=== PATIENT | male | born 1955 | race Caucasian/White ===

== ENCOUNTER 2022-02-03 11:43 | Inpatient (IN) | payer OTHER, SELFPAY ==
[2022-02-03] VITALS (38 sets, daily range): BP systolic 83–157; BP diastolic 49–109; PULSE 77–121; RESP 16–38; TEMP 32.9–36.9; O2SAT 99–100; BMI 16.7
--- NOTE | 2022-02-03 | ECHO_ITS ---
Patient Info Name: Bunny Kaur Age: 66 years : 1955 Gender: Male Ht: 72 in Wt: 123 lbs BSA: 1.66 m2 HR: 106 bpm BP: 116 / 69 mmHg Heart Rhythm: Sinus Rhythm Exam Date: 02/03/2022 3:49 PM Exam Location: [facility] Patient Status: Inpatient Admit Date: 02/03/2022 Staff Ordering Physician: Pritesh Sims MD Robot Operator: Spenser Neves RDCS, RT Attending Provider: Emily Fuentes DO Exam Type: CA echo dop color flow w con Study Info Indications I50.9 - Heart failure, unspecified Complete two-dimensional, color flow and Doppler transthoracic echocardiogram is performed with contrast to opacify the left ventricle and to improve the deliniation of the left ventricle endocardial borders. Summary 1. Left ventricular chamber dimension is normal. 2. Left ventricular systolic function is normal, estimated at 65-70%. 3. There is mildly increased left ventricular wall thickness. 4. The left ventricular diastolic function is grade I diastolic dysfunction. 5. The aortic root size at the sinus of Valsalva is moderately dilated. Left Ventricle Left ventricular chamber dimension is normal. Left ventricular systolic function is normal, estimated at 65-70%. There is mildly increased left ventricular wall thickness. The left ventricular diastolic function is grade I diastolic dysfunction. Right Ventricle Right ventricular chamber dimension is normal. Right ventricular systolic function is normal. Left Atria Left atrial chamber dimension is normal. Right Atria Right atrial chamber dimension is normal. Atrial Septum Intact interatrial septum visualized by color flow imaging. Aortic Valve The aortic valve is not well visualized. There is no aortic valve stenosis. There is trace aortic valve regurgitation. Pulmonic Valve The pulmonic valve is normal. There is no pulmonic valve stenosis. There is trace pulmonic regurgitation. Mitral Valve The mitral valve has normal leaflets. There is no mitral valve stenosis. There is trace mitral valve regurgitation. Tricuspid Valve The tricuspid valve leaflets are normal. There is no significant tricuspid valve stenosis. There is trace tricuspid valve regurgitation. Pericardium/Pleural The pericardium appears normal. There is no pericardial effusion. Inferior Vena Cava Normal inferior vena cava with >50% collapse upon inspiration consistent with normal right atrial pressure, 5 mmHg. Aorta The aortic root size at the sinus of Valsalva is moderately dilated. Left Ventricular Outflow Tract Name Value Normal LVOT 2D LVOT Diameter 2.05 cm LVOT Doppler LVOT Peak Gradient 3 mmHg LVOT Mean Gradient 2 mmHg LVOT VTI 13.36 cm LVOT VTI/AV VTI Ratio 0.78 LVOT Stroke Volume 43.89 ml LVOT CO 4.84 l/min LVOT CI 2.91 L/min/m2 Mitral Valve Name
--- NOTE | ~2022-02-03 | XR_ITS ---
EXAMINATION: XR chest 1V portable DATE: 02/12/2022 06:35 INDICATION: Pneumonia. Respiratory failure. TECHNIQUE: A single frontal view of the chest was obtained. COMPARISON: Chest single view 02/11/2022 FINDINGS: There are airspace opacities in right mid and lower lung zones and left lower lung zone. Ca lcified pulmonary nodules are consistent with old granulomatous disease. No pleural effusion or pneum othorax. The heart size is normal. The endotracheal tube tip is 2.6 cm above the naveen. The nasogast kirk tube tip is beyond the inferior margin of the radiograph, but at least to the stomach. IMPRESSION: 1. Airspace opacities in right mid and lower lung zones and left lower lung zones with worsening on t he right, consistent with atelectasis versus pneumonia. Reviewed, dictated and finalized at location A. SHER HOT STRIP IMPRESSION: 1. Airspace opacities in right mid and lower lung zones and left lower lung zon es with worsening on the right, consistent with atelectasis versus pneumonia.
--- NOTE | ~2022-02-03 | CT_ITS ---
Non-contrast Head CT History: Mental status change Technique: Axial non-contrast imaging of the brain was performed. Dose reduction technique was used on this scan by utilizing automated exposure control and iterative reconstruction technique. The dose -length product (DLP) was 681.00 mGy-cm. Findings: There is no evidence of intracranial hemorrhage, mass lesion, or acute infarct. Brain par enchyma appears normal. The ventricles and subarachnoid spaces are normal in size. The calvarium ap pears normal. The visualized paranasal sinuses and mastoid air cells are clear. Impression: No significant abnormality seen. Reviewed, dictated and finalized at location . WORKERS SUPERVISOR Impression: No significant abnormality seen.
--- NOTE | ~2022-02-03 | XR_ITS ---
XR abdomen NG/feed tube insert DATE: 02/03/2022 15:43 INDICATION: Orogastric tube placement TECHNIQUE: Portable AP view of the abdomen on 02/03/2022 at 1538 hours COMPARISON: None FINDINGS: Orogastric tube tip is present in the body of the stomach, the proximal side-port approxima tely 4 cm distal to the diaphragmatic hiatus. Nonspecific bowel gas pattern. The lung bases appear clear. Heart size appears normal. No pleural effusion is evident. IMPRESSION: Orogastric tube in body of the stomach Reviewed, dictated and finalized at [facility]. Reviewed, dictated and finalized at location A. NSIC IDENTIFICATION SPECIALIST
--- NOTE | ~2022-02-03 | US_ITS ---
Limited Abdominal Sonogram: Real-time sonographic imaging of the right upper quadrant was performed. Clinical History: Elevated liver enzymes Findings: The liver appears heterogeneous. There is a 2.4 x 2.3 cm mass in the right hepatic lobe wh ich is partially hyperechoic. There is a similar-appearing mass in the right hepatic lobe measuring 1 .4 cm. Main portal vein demonstrates normal direction of flow. The gallbladder is partially distended , with irregular wall thickening throughout. No definite gallstone present. The common bile duct tamy ures 3 mm. The visualized pancreas, aorta, and IVC are unremarkable. Impression: Heterogeneous hepatic echotexture. Findings could reflect cirrhosis or other chronic liver disease. C orrelate with any relevant clinical history. 2 partially hyperechoic hepatic masses measuring 2.4 and 1.4 cm in diameter respectively. These could reflect hemangiomas, but are somewhat indeterminate. Given the background heterogeneity of the liver , triple phase CT or pre and postcontrast MR of the liver recommended to better assess the imaging ch aracteristics of these lesions, and of the liver overall. Gallbladder wall thickening without evidence of gallstone. This is a nonspecific finding. Reviewed, dictated and finalized at [facility]. ET CASTING OPERATOR Impression: Heterogeneous hepatic echotexture. Findings could reflect cirrhosis or other ch ronic liver disease. Correlate with any relevant clinical history. 2 partially hyperechoic hepatic masses measuring 2.4 and 1.4 cm in diameter res pectively. These could reflect hemangiomas, but are somewhat indeterminate. Giv en the background heterogeneity of the liver, triple phase CT or pre and postco ntrast MR of the liver recommended to better assess the imaging characteristics of these lesions, and of the liver overall. Gallbladder wall thickening without evidence of gallstone. This is a nonspecifi c finding.
--- NOTE | ~2022-02-03 | XR_ITS ---
Portable chest x-ray Comparison: 02/07/2022 Clinical History: Respiratory failure Findings: Endotracheal tube and NG tube are in satisfactory positions. Minimal pleural effusions are present. There is mild central pulmonary edema pattern with probable left basilar atelectatic change . Cardiomediastinal silhouette is stable. Bones and soft tissues are unremarkable. Impression: Support tubes, as above. Minimal pleural effusions. Mild central pulmonary edema pattern and probable left basilar atelectasis. Reviewed, dictated and finalized at [facility]. STRIPER Impression: Support tubes, as above. Minimal pleural effusions. Mild central pulmonary edema pattern and probable left basilar atelectasis.
--- NOTE | ~2022-02-03 | XR_ITS ---
EXAMINATION: XR chest 1V portable DATE: 02/04/2022 06:23 INDICATION: Respiratory failure. TECHNIQUE: A single frontal view of the chest was obtained on 2 radiographs. COMPARISON: Chest single view 02/03/2022 FINDINGS: There are mild airspace opacities in left lower lung zone. No pleural effusion or pneumotho rax. The heart size is normal. The endotracheal tube tip is 5.3 cm above the naveen. The nasogastric tube tip is beyond the inferior margin of the radiograph, but at least to the stomach. IMPRESSION: 1. Mild airspace opacities in left lower lung zone, consistent with atelectasis versus pneumonia. Reviewed, dictated and finalized at location A. CORNER FORMER MACHINE OPERATOR
--- NOTE | ~2022-02-03 | XR_ITS ---
EXAMINATION: XR chest 1V portable DATE: 02/06/2022 05:59 INDICATION: Respiratory failure TECHNIQUE: frontal view of the chest was obtained. COMPARISON: Chest radiograph dated 02/05/2022 FINDINGS: Endotracheal tube tip 3.6 cm above the naveen. Nasogastric tube extends below the left hemidiaphragm with distal tip collimated off the study. Slight increase in opacities in the bilateral lower lung zones. No pleural effusion or pneumothorax. The cardiomediastinal silhouette is normal. IMPRESSION: 1. Slight increase in still mild opacities at the bilateral lower lung zones consistent with atelecta sis, pneumonia, mild pulmonary edema or some combination thereof. Reviewed, dictated and finalized at location A. FIC ROUTING ENGINEER IMPRESSION: 1. Slight increase in still mild opacities at the bilateral lower lung zones co nsistent with atelectasis, pneumonia, mild pulmonary edema or some combination thereof.
--- NOTE | ~2022-02-03 | CT_ITS ---
EXAMINATION: CT brain wo con INDICATION: Encephalopathy COMPARISON: 02/07/2022 TECHNIQUE: Standard unenhanced head CT. The dose-length product (DLP) was 983.67 mGy-cm. The mA was a djusted according to patient size. Iterative reconstruction technique was employed. FINDINGS: There is no intracranial hemorrhage, acute infarction, or abnormal mass lesion. The ventric les are normal. There is no abnormal mass effect or midline shift. The broussard-white matter differentiat ion is normal. The basal cisterns are patent. Changes in the globes are likely from ocular lens surge ry. There is mild mucosal thickening of the paranasal sinuses. IMPRESSION: 1. No acute intracranial abnormality. Reviewed, dictated and finalized at location B. H FINISHING RANGE BACK TENDER
--- NOTE | ~2022-02-03 | XR_ITS ---
Portable chest x-ray Comparison: 02/08/2022 Clinical History: Respiratory failure Findings: Endotracheal tube and NG tube are in satisfactory positions. There is right central airspa ce disease. Left lung essentially clear. Cardiomediastinal silhouette is stable. Bones and soft tiss ues are unremarkable. Impression: Right central airspace disease. Correlate for central pulmonary edema versus possibly pneumonia. Stable support tubes. Reviewed, dictated and finalized at location . DOCUMENT IMPROVEMENT Impression: Right central airspace disease. Correlate for central pulmonary edema versus po ssibly pneumonia. Stable support tubes.
--- NOTE | ~2022-02-03 | XR_ITS ---
Portable chest x-ray Comparison: 02/10/2022 Clinical History: Respiratory failure Findings: Endotracheal tube and NG tube are in satisfactory positions. Stable central bilateral airs pace disease, right worse than left. Cardiomediastinal silhouette is stable. Bones and soft tissues are unremarkable. Impression: Stable central mild pulmonary edema pattern versus pneumonia. Stable support tubes. Reviewed, dictated and finalized at [facility]. T ROCK APPLIER Impression: Stable central mild pulmonary edema pattern versus pneumonia. Stable support tubes.
--- NOTE | ~2022-02-03 | XR_ITS ---
EXAMINATION: XR chest 1V portable DATE: 02/05/2022 06:16 INDICATION: Respiratory failure TECHNIQUE: frontal view of the chest was obtained. COMPARISON: Chest radiograph dated 02/04/2022 FINDINGS: Endotracheal tube tip 5.2 cm above the naveen. Nasogastric tube extends below the left hemidiaphragm with distal tip collimated off the study. Persistent mild opacities in the left lower lung zone. No pleural effusion or pneumothorax. The cardiomediastinal silhouette is normal. IMPRESSION: 1. Unchanged mild opacities in the left lower lung zone consistent with atelectasis versus pneumonia. Reviewed, dictated and finalized at location A. LER AND BROACHER IMPRESSION: 1. Unchanged mild opacities in the left lower lung zone consistent with atelect asis versus pneumonia.
--- NOTE | ~2022-02-03 | CT_ITS ---
EXAMINATION: CT brain wo con DATE: 02/07/2022 13:57 INDICATION: Acute mental status TECHNIQUE: Computed tomography (CT) of the head was performed without intravenous contrast. Sagittal and coronal reconstructions were performed. The mA was adjusted according to patient size. Iterative reconstruction technique was employed. The dose-length product was 681.00 mGy-cm. COMPARISON: head CT dated 02/03/2022 FINDINGS: Scattered mild streak artifact which only mildly limits evaluation. No acute intracranial hemorrhage, acute infarction or abnormal extra axial fluid collection. Ventricles are normal and symmetric. No m ass/mass effect. Changes of bilateral intraocular lens replacement. The orbits and mastoid air cells are normal. Small amount of fluid layering dependently in the bilateral ethmoid, maxillary and spheno id sinuses. Endotracheal tube and orogastric tube extend through the oral cavity into the oropharynx and beyond the inferior margin of imaging. IMPRESSION: 1. No acute intracranial process. Reviewed, dictated and finalized at location A. [employer]
--- NOTE | ~2022-02-03 | XR_ITS ---
Portable chest x-ray Comparison: 02/09/2022 Clinical History: Pneumonia Findings: Endotracheal tube and NG tube are in satisfactory positions. There is mild perihilar hazy airspace disease bilaterally, right worse than left. Cardiomediastinal silhouette is stable. Bones a nd soft tissues are unremarkable. Impression: Mild perihilar airspace disease bilaterally, right worse than left. Correlate for central pulmonary e teresa versus pneumonia. Reviewed, dictated and finalized at location M. REPAIRMAN Impression: Mild perihilar airspace disease bilaterally, right worse than left. Correlate f or central pulmonary edema versus pneumonia.
--- NOTE | ~2022-02-03 | XR_ITS ---
EXAMINATION: XR chest 1V portable DATE: 02/07/2022 05:47 INDICATION: Respiratory failure TECHNIQUE: frontal view of the chest was obtained. COMPARISON: Chest radiograph dated 02/06/2022 FINDINGS: Endotracheal tube tip 5.0 cm above the naveen. Nasogastric tube extends below the left hemidiaphragm with distal tip collimated off the study. Persistent airspace opacities in the bilateral mid and lower lung zones with some increase in density at the medial aspect of the bilateral lower lung zones. Linear band of discoid atelectasis/scarring the left upper lung zone. Likely small left pleural effusion. No pneumothorax. The cardiomediastinal silhouette is normal. IMPRESSION: 1. Lateral airspace opacities with increase in the lower lung zones consistent with worsening atelect asis or pneumonia. 2. Small left pleural effusion. Reviewed, dictated and finalized at location A. HOUSE PROCESSOR IMPRESSION: 1. Lateral airspace opacities with increase in the lower lung zones consistent with worsening atelectasis or pneumonia. 2. Small left pleural effusion.
--- NOTE | ~2022-02-03 | XR_ITS ---
XR chest ET placement 02/03/2022 12:06 Indication: Endotracheal tube placement Procedure: AP portable chest Comparison: No prior studies for comparison. Findings: Endotracheal tube tip 4.2 cm above the naveen. Heart size normal. Bibasilar interstitial in filtrates. No pleural effusion or pneumothorax. Heart size normal. There is atherosclerosis. No acute osseous abnormality. Impression: 1: Subtle bibasilar infiltrates may represent ectasis, pneumonia or mild interstitial edema. Reviewed, dictated and finalized at location A. ATE EQUITY ANALYST Impression: 1: Subtle bibasilar infiltrates may represent ectasis, pneumonia or mild inters titial edema.
--- NOTE | 2022-02-03 11:48 | PC.NURSE ---
etomidate 20 mg ivp given succ 100 mg ivp given 7.5 et tube placed with difficulty at 27 @ lips. positive color change on color metric device. lungs sounds ausculated throughout all lung mascorro bp 158/90 p84
[2022-02-03] MEDS: SODIUM CHLORIDE 0.9% IV 1,000 ML 999 ML IV CONT ×3 (11:55→18:32)
--- NOTE | 2022-02-03 11:55 | ECG_ITS ---
Measurements Intervals [place] Rate: 88 P: 45 CT: 142 QRS: 18 QRSD: 98 T: 64 QT: 414 QTc: 503 Interpretive Statements SINUS RHYTHM NONSPECIFIC ST ABNORMALITY ABNORMAL ECG NO PREVIOUS ECG AVAILABLE FOR COMPARISON Electronically Signed On 02-03-2022 13:42:24 TAB MACHINE OPERATOR by Og May M.D.
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
[2022-02-03 12:25] LABS: Basophils Percent Auto 0.2 % (0.2-1.2); Hematocrit 30.7 % (42.0-52.0); Hemoglobin 10.5 g/dL (14.0-18.0); Immature Granulocyte Absolute 0.27 K/mm3 (0.00-0.031); Immature Granulocyte Percent A 1.3 % (0-0.5); Lymphocytes Percent Auto 13.5 % (18.3-44.2); Mean Corpuscular HGB Conc 34.2 g/dl (32-36); Mean Corpuscular Volume 90.6 fl (80-100); Mean Platelet Volume 11.3 fl (7.4-10.4); Monocytes Absolute Auto 0.9 K/mm3 (0.1-0.6); Monocytes Percent Auto 4.2 % (2.6-8.5); Neutrophils Absolute Auto 16.8 K/mm3 (1.3-6.7); Neutrophils Percent Auto 80.8 % (45.5-73.1); Platelet Count Result 147 k/mm3 (150-375); Red Blood Count 3.39 M/mm3 (4.6-6.20); White Blood Count 20.7 K/mm3 (4.5-10.0)
[2022-02-03 12:37] LABS: Albumin Level 3.2 g/dL (3.5-5.1); Alkaline Phosphatase 90 U/L (38-126); Anion Gap 12 mmol/L (8-16); Bilirubin,Total 2.4 mg/dL (0.2-1.3); Blood Urea Nitrogen 85 mg/dL (9-20); Calcium 7.9 mg/dL (8.4-10.2); Carbon Dioxide 22 mmol/L (22-30); Chloride 101 mmol/L (98-107); Estimated CRCL calculation 40 ml/min; Estimated Glomerular Filt Rate 55; Glucose 93 mg/dL (65-110); Potassium 5.1 mmol/L (3.4-5.0); Sodium 135 mmol/L (137-145)
[2022-02-03 12:38] LABS: Lactic Acid Reflex 7.9 mmol/L (0.7-2.0)
[2022-02-03 12:38] LABS: Alveolar/Arterial O2 Gradient 171.8 mmHg; Base Excess ABG -4.5 mEq/l (+/-2.0); Fractional Inspired Oxygen 100 %; HCO3 ABG 18.8 mEq/l (22.0-26.0); Modified Allen's Test Pass; Oxygen Content ABG 15.5 %vol (16.0-22.0); Oxygen Saturation ABG 99.9 % (95.0-100.0); Oxyhemoglobin 97.9 % THb (90.0-100.0); PCO2 ABG 28.8 mmHg (35.0-45.0); PO2 ABG 512.4 mmHg (80.0-100.0); PO2 FiO2 Ratio Arterial Blood 5.12 %; Site Drawn RIGHT RADIAL; Total Hemoglobin 10.2 g/dL (12.0-18.0); pH ABG 7.433 (7.350-7.450)
[2022-02-03 12:39] LABS: INR 2.1; Prothrombin Time 22.7 Seconds (11.1-14.7)
[2022-02-03 12:39] LABS: Device VENTILATOR
[2022-02-03 12:40] LABS: Arterial Blood Gas Vent Mode CMV; Arterial Blood Gas Ventilator rate 18 /MIN
[2022-02-03 12:40] LABS: Add Urine Microscopic? YES; Appearance Urine Clear (Clear); Bilirubin Urine Negative (Negative); Blood Urine Trace-Intact (Negative); Color Urine Yellow (Yellow); Glucose Urine UA Negative (Negative); Ketones Urine Negative (Negative); Leukocyte Esterase Ur Negative LEU/UL (Negative); Nitrate Urine Negative (Negative); Partial Thromboplastin Time 29.6 SECONDS (22.3-36.8); Protein Urine Negative (Negative); Urobilinogen Urine 0.2 mg/dL (<2.0); pH Urine 5.5 (5.0-9.0)
[2022-02-03 12:41] LABS: Arterial Blood Gas PEEP 5 cmH2O; Arterial Blood Gas Tidal Volume 500 ml
[2022-02-03 12:42] LABS: Anisocytosis 1+ (NORMAL); Platelet Estimate Adequate (Adequate); Poikilocytosis 1+ (NORMAL); Schistocytes None Seen (NORMAL)
[2022-02-03 12:43] LABS: RBC Urine 0-2 /hpf (0-2); WBC Urine 0-3 /hpf
[2022-02-03 12:46] LABS: Amphetamine Screen Urine Negative (Negative); Barbiturate Screen Urine Negative (Negative); Benzodiazepines Screen Urine Negative (Negative); Cannabinoid Screen Urine Positive (Negative); Cocaine Screen Urine Negative (Negative); Methadone Screen Urine Negative (Negative); Opiate Screen Urine Negative (Negative); Phencyclidine Screen Urine Negative (Negative)
[2022-02-03 12:50] LABS: Troponin I 0.152 ng/mL (0.000-0.034)
[2022-02-03 12:58] LABS: Alanine Aminotransferase 286 U/L (6-50)
[2022-02-03 13:12] LABS: Influenza A QL RT-PCR Positive (Negative); Influenza B QL RT-PCR Negative (Negative); SARS-CoV-2 RNA PCR Negative
[2022-02-03 13:13] LABS: Acetaminophen < 10 ug/mL (10-30); Ethanol < 10 mg/dL (<10); Salicylate 1.4 mg/dL (2-20)
[2022-02-03 13:35] LABS: Aspartate Amino Transferase 784 U/L (17-59)
[2022-02-03] MEDS: PROPOFOL IV EMULSION 100 ML 2.3 MG (13:35)
[2022-02-03] MEDS: cefTRIAXone 2 GM in SODIUM CHLORIDE 0.9% IV 100 ML 200 ML IVPB (13:45)
--- NOTE | 2022-02-03 14:10 | WPDCNINT ---
Assessment and Plan Assessment and plan (1) Respiratory failure: Code(s): J96.90 - Respiratory failure, unspecified, unspecified whether with hypoxia or hypercapnia Status: Acute Assessment and Plan: Acute Respiratory failure secondary to influenza a, possible pneumonia, sepsis and encephalopathy Patient now intubated in ER and on mechanical ventilation Continue full mechanical ventilation support to prevent hypoxemia/hypercarbia and end organ damage. ABG and PCXR reviewed and will repeat in am. Low tidal volume ventilation strategy to prevent volutrauma Bronchodilators (2) Sepsis: Code(s): A41.9 - Sepsis, unspecified organism Status: Acute Assessment and Plan: Sepsis secondary to influenza A and pneumonia. Pneumonia could be aspiration or post influenza Patient received 30 mL/kg IV fluid bolus and IV fluids will be continued Monitor lactic acid level Blood pressure is adequate at this time and has not required vasopressors but may need them going for Blood culture sent. Will also order sputum culture Check urine pneumococcal and Legionella antigen Check mycoplasma IgM Tamiflu Empiric vancomycin and Zosyn (3) Influenza A: Code(s): J10.1 - Influenza due to other identified influenza virus with other respiratory manifestations Status: Acute Assessment and Plan: See above (4) Pneumonia: Code(s): J18.9 - Pneumonia, unspecified organism Status: Acute Assessment and Plan: See above (5) Hypothermia: Code(s): T68.XXXA - Hypothermia, initial encounter Status: Acute Assessment and Plan: Secondary to sepsis and environmental exposure Patient has warming blanket on Will use fluid warmer for IV fluids (6) Encephalopathy: Code(s): G93.40 - Encephalopathy, unspecified Status: Acute Assessment and Plan: Likely toxic metabolic encephalopathy Head CT was negative TSH normal Check ammonia level (7) Elevated liver enzymes: Code(s): R74.8 - Abnormal levels of other serum enzymes Status: Acute Assessment and Plan: Could be secondary to rhabdomyolysis and sepsis Tylenol level was normal Monitor LFTs Check viral hepatitis panel Check right upper quadrant ultrasound (8) Hyperbilirubinemia: Code(s): E80.6 - Other disorders of bilirubin metabolism Status: Acute Assessment and Plan: See above (9) Coagulopathy: Code(s): D68.9 - Coagulation defect, unspecified Status: Acute Assessment and Plan: Elevated INR Will give vitamin K Monitor coags (10) Elevated troponin: Code(s): R77.8 - Other specified abnormalities of plasma proteins Status: Acute Assessment and Plan: Likely demand mediated ischemia from sepsis EKG reviewed Serial troponin Check echocardiogram (11) Rhabdomyolysis: Code(s): M62.82 - Rhabdomyolysis Status: Acute Assessment and Plan: Continue IV fluids Monitor CK level Monitor renal function (12) Hyperkalemia: Code(s): E87.5 - Hyperkalemia Status: Acute Assessment and Plan: Potassium mildly elevated. Patient receiving IV fluids Recheck level later in the day Plan DVT prophylaxis -Lovenox Stress ulcer prophylaxis -PPI Nutrition -NPO Code Status - Full Code Total Critical Care Time - 40minutes Due to a high probability of clinically significant, life threatening deterioration, the patient required my highest level of preparedness to intervene emergently and I personally spent this critical care time directly and personally managing the patient. This critical care time included obtaining a history; examining the patient; pulse oximetry; ordering and review of studies; arranging urgent treatment with development of a management plan; evaluation of patient's response to treatment; frequent reassessment; and discussions with other providers. It was exclusive of separately billable procedures
[2022-02-03 14:25] LABS: Creatine Kinase 6590 U/L (55-170)
[2022-02-03 15:22] LABS: Reflex Lactic Acid Yes or No Add Lactic
--- NOTE | 2022-02-03 15:29 | ADMGEN ---
This patient, Bunny Kaur, was admitted to Intensive Care Unit-8. Patient/family oriented to hospital policies and general routines including ID bracelet, bed and alarms, visiting hours, pain management, procedures, bathroom and other care routines, personal items, smoking policy, room service/diet, and visiting hours. Information on how to activate the Rapid Response Team has been discussed. Patient/Family are encouraged to report perceived risks to care and to ask questions if they do not understand what they are told or what they should do.
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
[2022-02-03 16:20] LABS: Ammonia 153 umol/L (9-30)
[2022-02-03 16:23] LABS: Lactic Acid 5.2 mmol/L (0.7-2.0)
[2022-02-03] MEDS: PROPOFOL IV EMULSION 100 ML 6.72 MG IV CONT (16:36)
[2022-02-03] MEDS: SODIUM CHLORIDE 0.9% IV 1,000 ML 150 ML IV CONT (16:44)
[2022-02-03] MEDS: OSELTAMIVIR PHOSPHATE ORAL SUSP 75 MG/12.5 ML SYRINGE FEED TUBE ×2 (16:45→23:09)
[2022-02-03] MEDS: PHYTONADIONE 5 MG TABLET 10 MG FEED TUBE (16:54)
[2022-02-03 17:07] LABS: Triglycerides 111 mg/dL (<150)
[2022-02-03 17:24] LABS: Troponin I 0.125 ng/mL (0.000-0.034)
[2022-02-03 17:34] LABS: Hematocrit 24.7 % (42.0-52.0); Hemoglobin 8.5 g/dL (14.0-18.0)
[2022-02-03 17:48] LABS: Lactic Acid Reflex 7.8 mmol/L (0.7-2.0)
[2022-02-03 17:49] LABS: Anion Gap 11 mmol/L (8-16); Blood Urea Nitrogen 84 mg/dL (9-20); Calcium 7.3 mg/dL (8.4-10.2); Carbon Dioxide 20 mmol/L (22-30); Chloride 109 mmol/L (98-107); Estimated CRCL calculation 33 ml/min; Estimated Glomerular Filt Rate 43; Glucose 53 mg/dL (65-110); Potassium 4.7 mmol/L (3.4-5.0); Sodium 140 mmol/L (137-145)
[2022-02-03] MEDS: DEXTROSE 50% 25 GM/50 ML SYRINGE IV PUSH ×2 (17:55→20:06)
[2022-02-03 18:04] LABS: Hepatitis B Surface Antigen Negative (Negative)
[2022-02-03 18:09] LABS: HAV RESULT Negative (Negative); Hepatitis B Core IgM Result Negative (Negative)
[2022-02-03 18:28] LABS: Hepatitis C Virus Antibody Reactive (Negative)
[2022-02-03] MEDS: ENOXAPARIN 40 MG/0.4 ML SYRINGE SUB-Q (18:33)
[2022-02-03] MEDS: PANTOPRAZOLE SODIUM IV 40 MG VIAL IV PUSH ×2 (18:33→23:11)
[2022-02-03 18:51] LABS: Glucose Point of Care 81 mg/dl (65-105)
[2022-02-03 20:01] LABS: Glucose Point of Care 60 mg/dl (65-105)
[2022-02-03] MEDS: SODIUM BICARBONATE 8.4% 100 MEQ in DEXTROSE 5% 1,000 ML 1,000 ML 150 MEQ IV CONT (20:06)
[2022-02-03 20:34] LABS: Glucose Point of Care 130 mg/dl (65-105)
[2022-02-03 20:54] LABS: Hematocrit 21.8 % (42.0-52.0)
[2022-02-03 20:58] LABS: Hemoglobin 7.1 g/dL (14.0-18.0)
[2022-02-03] MEDS: MINERAL OIL/WHITE PETROLATUM OINTMENT 1 APPLIC EACH EYE (21:00)
[2022-02-03] MEDS: NOREPINEPHRINE 8 MG/D5W 250 ML 8 MG/250 ML BAG 9.38 MG IV CONT (22:05)
[2022-02-03 22:33] LABS: Glucose Point of Care 102 mg/dl (65-105)
--- NOTE | 2022-02-03 22:57 | P.PCNBED_ITS ---
Procedures Central Line Placement Right Femoral: Central Line Date: 02/03/22 Central Line Time: 21:20 Discussed w/ the patient/family/POA,the placement of a central venous catheter, including its clinical necessity/indication & associated potential risks, benifits and alternatives.: Yes The patient/family/POA understand(s) and acknowledge(s) the need to proceed with central venous catheter insertion as an important element of the patient's clinical management.: Yes Consent: I have discussed with the patient and/or surrogate, the non-emergent placement of a central venous catheter, including its clinical necessity/indication and associated potential risks and complications. The patient and/or surrogate understand(s) and acknowledge(s) the need to proceed with central venous catheter insertion as an important element of the patient's clinical management. Time Out Performed: Yes Patient Position: supine Patient placed on monitor/pulse ox: Yes Provider Prep: Max. sterile barrier precautions Central line prep: 2% Chlorhexidine scrub Local anesthesia used: lidocaine 1% Amount of anesthesia used (ml): 5 Sterile US Technique with sterile gel/sterile probe covers: Yes Central line lumen inserted: triple Turkmen: 7 Length (cm): 16 Depth of Insertion (cm): 16 Post Procedure: sutured in place, good blood return, all ports aspirated, flushed, capped, transparent dressing and hemostatic product Patient tolerated procedure: well
[2022-02-03] MEDS: hetaSTARCH 6%/NACL 500 ML 250 ML IV CONT (23:11)
[2022-02-04] VITALS (47 sets, daily range): BP systolic 104–147; BP diastolic 56–80; PULSE 82–116; RESP 18–49; TEMP 36.8–38.1; O2SAT 96–100; BMI 17.4
[2022-02-04 00:04] LABS: Glucose Point of Care 107 mg/dl (65-105)
[2022-02-04] MEDS: SODIUM CHLORIDE 0.9% IV 250 ML 30 ML IV CONT (00:15)
[2022-02-04] MEDS: PROPOFOL IV EMULSION 100 ML 5.04 MG IV CONT (01:23)
[2022-02-04 02:43] LABS: Troponin I 0.145 ng/mL (0.000-0.034)
[2022-02-04 02:50] LABS: Gastric Negative Control Negative; Occult Blood Gastric Fluid Positive; pH Gastric Fluid 2 (1-8)
[2022-02-04 02:51] LABS: Gastric Positive Control Positive
[2022-02-04] MEDS: SODIUM BICARBONATE 8.4% 100 MEQ in DEXTROSE 5% 1,000 ML 1,000 ML 150 MEQ IV CONT (03:32)
[2022-02-04 05:55] LABS: Alveolar/Arterial O2 Gradient 56.4 mmHg; Base Excess ABG 3.3 mEq/l (+/-2.0); Carboxyhemoglobin 0.2 % THb (0-2.0); Fractional Inspired Oxygen 30 %; HCO3 ABG 26.8 mEq/l (22.0-26.0); Methemoglobin ABG 0.4 %THb (0-1.5); Oxygen Content ABG 13.6 %vol (16.0-22.0); Oxygen Saturation ABG 98.5 % (95.0-100.0); Oxyhemoglobin 96.2 % THb (90.0-100.0); PCO2 ABG 36.6 mmHg (35.0-45.0); PO2 ABG 114.5 mmHg (80.0-100.0); PO2 FiO2 Ratio Arterial Blood 3.82 %; Reduced Hemoglobin 3.2 %THb (0-5.0); Total Hemoglobin 9.9 g/dL (12.0-18.0); pH ABG 7.483 (7.350-7.450)
[2022-02-04 05:56] LABS: Arterial Blood Gas PEEP 5 cmH2O; Arterial Blood Gas Tidal Volume 500 ml; Arterial Blood Gas Vent Mode CMV; Arterial Blood Gas Ventilator rate 12 /MIN; Device VENTILATOR; Modified Allen's Test Pass; Site Drawn RIGHT RADIAL
[2022-02-04] MEDS: CENTRAL LINE FLUSH 10 ML IV PUSH ×4 (06:13→20:20)
[2022-02-04 06:16] LABS: Basophils Percent Auto 0.2 % (0.2-1.2); Hematocrit 24.9 % (42.0-52.0); Hemoglobin 8.5 g/dL (14.0-18.0); Immature Granulocyte Absolute 0.18 K/mm3 (0.00-0.031); Immature Granulocyte Percent A 1.4 % (0-0.5); Immature Platelet Fraction Pct 5.8 % (0.9-11.2); Lymphocytes Absolute Auto 1.68 K/mm3 (0.9-3.2); Lymphocytes Percent Auto 12.7 % (18.3-44.2); Mean Corpuscular HGB Conc 34.1 g/dl (32-36); Mean Corpuscular Hemoglobin 30.5 pg (26-34); Mean Corpuscular Volume 89.2 fl (80-100); Mean Platelet Volume 11.5 fl (7.4-10.4); Monocytes Absolute Auto 0.7 K/mm3 (0.1-0.6); Monocytes Percent Auto 5.1 % (2.6-8.5); Neutrophils Absolute Auto 10.7 K/mm3 (1.3-6.7); Neutrophils Percent Auto 80.6 % (45.5-73.1); Nucleated Red Blood Cells Perc 0.2 % (0.0-0.2); Platelet Count Result 81 k/mm3 (150-375); Red Blood Count 2.79 M/mm3 (4.6-6.20); Red Cell Distribution Width 15.6 % (11.5-14.5); White Blood Count 13.2 K/mm3 (4.5-10.0)
[2022-02-04 06:25] LABS: INR 3.1; Prothrombin Time 31.3 Seconds (11.1-14.7)
[2022-02-04 06:30] LABS: Alanine Aminotransferase 660 U/L (6-50); Albumin Level 1.8 g/dL (3.5-5.1); Alkaline Phosphatase 58 U/L (38-126); Anion Gap 0 mmol/L (8-16); Bilirubin,Total 1.3 mg/dL (0.2-1.3); Blood Urea Nitrogen 99 mg/dL (9-20); Calcium 5.8 mg/dL (8.4-10.2); Carbon Dioxide 30 mmol/L (22-30); Chloride 105 mmol/L (98-107); Estimated CRCL calculation 30 ml/min; Estimated Glomerular Filt Rate 38; Glucose 123 mg/dL (65-110); Magnesium 2.3 mg/dL (1.6-2.3); Potassium 3.9 mmol/L (3.4-5.0); Sodium 135 mmol/L (137-145)
[2022-02-04 06:44] LABS: Lactic Acid Reflex 1.9 mmol/L (0.7-2.0)
[2022-02-04] MEDS: CALCIUM GLUC 2,000 MG/NS 100ML 2,000 MG/100 ML BAG 100 MG IVPB (08:53)
[2022-02-04] MEDS: LACTULOSE 20 GM/30 ML UDC FEED TUBE ×3 (08:56→17:05)
[2022-02-04] MEDS: OSELTAMIVIR PHOSPHATE ORAL SUSP 75 MG/12.5 ML SYRINGE FEED TUBE ×2 (08:56→20:24)
[2022-02-04] MEDS: PANTOPRAZOLE SODIUM IV 40 MG VIAL IV PUSH ×2 (08:57→20:20)
[2022-02-04] MEDS: MINERAL OIL/WHITE PETROLATUM OINTMENT 1 APPLIC EACH EYE ×2 (08:58→20:19)
[2022-02-04 09:09] LABS: Creatine Kinase 5660 U/L (55-170)
[2022-02-04 09:10] LABS: Aspartate Amino Transferase 1953 U/L (17-59)
[2022-02-04 09:33] LABS: Platelet Estimate Decreased (Adequate); Schistocytes None Seen (NORMAL)
[2022-02-04 09:34] LABS: Anisocytosis 1+ (NORMAL); Poikilocytosis 1+ (NORMAL)
[2022-02-04 09:42] LABS: Glucose Point of Care 127 mg/dl (65-105)
--- NOTE | 2022-02-04 09:45 | WPDINTPN ---
Progress Note: A&P Assessment and Plan (1) Respiratory failure: Code(s): J96.90 - Respiratory failure, unspecified, unspecified whether with hypoxia or hypercapnia Status: Acute Assessment and Plan: Acute Respiratory failure secondary to influenza A, possible pneumonia, sepsis and encephalopathy Patient now intubated in ER and on mechanical ventilation Continue full mechanical ventilation support to prevent hypoxemia/hypercarbia and end organ damage. ABG reviewed decrease tidal volume to 400 and rate to 12 Chest x-ray reviewed Low tidal volume ventilation strategy to prevent volutrauma Bronchodilators (2) Sepsis: Code(s): A41.9 - Sepsis, unspecified organism Status: Acute Assessment and Plan: Sepsis secondary to influenza A and pneumonia. Pneumonia could be aspiration or post influenza Patient received 30 mL/kg IV fluid bolus and IV fluids will be continued Lactic acid level improved Continue Levophed titration for maintain map Blood culture sent and are pending. Sputum culture is pending Pending urine pneumococcal and Legionella antigen Pending mycoplasma IgM Tamiflu will be continued Empiric vancomycin and Zosyn (3) Influenza A: Code(s): J10.1 - Influenza due to other identified influenza virus with other respiratory manifestations Status: Acute Assessment and Plan: See above (4) Pneumonia: Code(s): J18.9 - Pneumonia, unspecified organism Status: Acute Assessment and Plan: See above (5) Hypothermia: Code(s): T68.XXXA - Hypothermia, initial encounter Status: Acute Assessment and Plan: Secondary to sepsis and environmental exposure Patient was treated with warming blanket and fluid warmer Temperature has normalized now (6) Encephalopathy: Code(s): G93.40 - Encephalopathy, unspecified Status: Acute Assessment and Plan: Likely toxic metabolic encephalopathy Head CT was negative TSH normal Ammonia level elevated -start lactulose Will get EEG if no improvement despite treatment (7) Cirrhosis: Code(s): K74.60 - Unspecified cirrhosis of liver Status: Acute Assessment and Plan: Patient's clinical picture points towards per cirrhosis. He has elevated INR low albumin and elevated ammonia level Ultrasound showed Heterogeneous hepatic echotexture. Findings could reflect cirrhosis or other chronic liver disease. Correlate with any relevant clinical history. 2 partially hyperechoic hepatic masses measuring 2.4 and 1.4 cm in diameter respectively. These could reflect hemangiomas, but are somewhat indeterminate. Given the background heterogeneity of the liver, triple phase CT or pre and postcontrast MR of the liver recommended to better assess the imaging characteristics of these lesions, and of the liver overall. Gallbladder wall thickening without evidence of gallstone. This is a nonspecific finding. Viral panel was reactive for hepatitis C. Hep C virall PCR pending Vitamin K given Lactulose for ammonia Patient currently intubated and cannot do MRI and also will hold the string contrast due to acute renal failure (8) Elevated liver enzymes: Code(s): R74.8 - Abnormal levels of other serum enzymes Status: Acute Assessment and Plan: secondary to rhabdomyolysis and sepsis Tylenol level was normal Monitor LFTs Viral hepatitis panel shows reaction to hepatitis C antibody-RNA PCR pending Check right upper quadrant ultrasound consistent with cirrhosis (9) Hyperbilirubinemia: Code(s): E80.6 - Other disorders of bilirubin metabolism Status: Acute Assessment and Plan: See above (10) Coagulopathy: Code(s): D68.9 - Coagulation defect, unspecified Status: Acute Assessment and Plan: Elevated INR likely secondary to liver dysfunction Vitamin K administered Monitor coags (11) Elevated troponin: Code(s): R77.8 - Other specified abnormalitie
[2022-02-04] MEDS: DEXTROSE 5%/LACTATED RINGERS 1,000 ML 125 ML IV CONT ×2 (10:00→17:30)
[2022-02-04] MEDS: ASPIRIN 325 MG TABLET FEED TUBE (10:18)
[2022-02-04 10:26] LABS: Hematocrit 26.4 % (42.0-52.0); Hemoglobin 9.1 g/dL (14.0-18.0)
[2022-02-04] MEDS: ALBUMIN HUMAN 25% 25 GM/100 ML 100 ML IVPB ×2 (12:01→17:28)
[2022-02-04 12:05] LABS: Glucose Point of Care 129 mg/dl (65-105)
[2022-02-04] MEDS: PROPOFOL IV EMULSION 100 ML 8.4 MG IV CONT (13:30)
--- NOTE | 2022-02-04 14:39 | WPDGICN ---
Assessment and Plan Assessment and plan (1) Hematemesis: Code(s): K92.0 - Hematemesis Status: Acute Assessment and Plan: we will proceed with urgent EGD, could have ulcers, varices (new diagnosis of cirrhosis) on iv protonix, may need iv octreotide (2) Acute blood loss anemia: Code(s): D62 - Acute posthemorrhagic anemia Status: Acute Assessment and Plan: with septic shock, on iv protonix egd (3) Cirrhosis: Code(s): K74.60 - Unspecified cirrhosis of liver Status: Acute Assessment and Plan: probably from hcv, no more history (4) Acute kidney injury: Code(s): N17.9 - Acute kidney failure, unspecified Status: Acute Assessment and Plan: patient with multiorgan failure, hypotension, couagulopathy, renal failure by icu he is quite sick (5) Rhabdomyolysis: Code(s): M62.82 - Rhabdomyolysis Status: Acute Assessment and Plan: monitor (6) Coagulopathy: Code(s): D68.9 - Coagulation defect, unspecified Status: Acute (7) Elevated liver enzymes: Code(s): R74.8 - Abnormal levels of other serum enzymes Status: Acute (8) Encephalopathy: Code(s): G93.40 - Encephalopathy, unspecified Status: Acute Assessment and Plan: intubated (9) Sepsis: Code(s): A41.9 - Sepsis, unspecified organism Status: Acute Assessment and Plan: on antibiotics (10) Altered mental status: Code(s): R41.82 - Altered mental status, unspecified Status: Acute (11) Respiratory failure: Code(s): J96.90 - Respiratory failure, unspecified, unspecified whether with hypoxia or hypercapnia Status: Acute (12) Influenza A: Code(s): J10.1 - Influenza due to other identified influenza virus with other respiratory manifestations Status: Acute Assessment and Plan: also influenza (13) Pneumonia: Code(s): J18.9 - Pneumonia, unspecified organism Status: Acute (14) Acidosis, lactic: Code(s): E87.20 - Acidosis, unspecified Status: Acute GI Consult Note Consult date/time: 02/04/22 14:39 Reason for consult: gib, acute blood loss anemia, cirrhosis HPI: Bunny Kaur is a 66 year old male who has not seen a physician for a long time and was found by his brother at home after his neighbor called for a wellness check because he had not seen patient for 8 days.? History obtained from record, he was found on floor unresponsive and also with bloody emesis.?It seems that lately has not been feeling well and had chills. When patient arrived in the ED he was hypothermic and obtunded.? He was intubated and placed on sedative.? Workup showed elevated WBC, lactic acidosis, hb dropped to 7, he was hypothermic and also had elevated liver enzymes, elevated CK and he tested positive for influenza A. NGT placed and started on tube feeding, also he is on pressors, started on iv protonix and antibiotics for pneumonia. Abdominal ultrasound showed cirrhosis and also + HCV Review of Systems Review of Systems: ROS unobtainable: Yes unobtainable due to endotracheal tube, unobtainable due to medical condition and unobtainable due to mental status PMFSH Past Medical History Medical History (Updated 02/04/22 @ 15:36 by Kelby Mayes MD) Acute blood loss anemia Hematemesis Marijuana abuse Surgical History Surgical History (Updated 02/03/22 @ 16:24 by Radha Galvan NP) H/O cataract extraction Family History Family History (Updated 02/03/22 @ 16:37 by Radha Galvan NP) Mother COPD (chronic obstructive pulmonary disease) Father Malignant neoplasm of prostate Dementia Social History Social History (Updated 02/03/22 @ 16:30 by Radha Galvan NP) Social History: The patient lives home alone. His brother Favian comes and helps him sometimes. The patient is single and has no children. The patient is retired from various jobs. Th
[2022-02-04 17:32] LABS: Glucose Point of Care 145 mg/dl (65-105)
[2022-02-04 17:52] LABS: Hemoglobin 8.3 g/dL (14.0-18.0)
[2022-02-04 17:59] LABS: IFOB Positive Control Positive; Immunochemical Fecal Occult Bl Positive (N)
[2022-02-05] VITALS (46 sets, daily range): BP systolic 141–190; BP diastolic 63–91; PULSE 89–123; RESP 16–42; TEMP 37.5–38.3; O2SAT 93–100
[2022-02-05 00:46] LABS: Glucose Point of Care 167 mg/dl (65-105)
[2022-02-05] MEDS: ALBUMIN HUMAN 25% 25 GM/100 ML 100 ML IVPB ×4 (01:15→17:17)
[2022-02-05] MEDS: PROPOFOL IV EMULSION 100 ML 6.72 MG IV CONT (01:16)
[2022-02-05 04:35] LABS: Basophils Percent Auto 0.2 % (0.2-1.2); Hematocrit 21.7 % (42.0-52.0); Immature Granulocyte Absolute 0.06 K/mm3 (0.00-0.031); Immature Granulocyte Percent A 1.1 % (0-0.5); Immature Platelet Fraction Pct 6.7 % (0.9-11.2); Lymphocytes Absolute Auto 0.66 K/mm3 (0.9-3.2); Lymphocytes Percent Auto 12.2 % (18.3-44.2); Mean Corpuscular HGB Conc 32.7 g/dl (32-36); Mean Corpuscular Hemoglobin 30.6 pg (26-34); Mean Corpuscular Volume 93.5 fl (80-100); Mean Platelet Volume 11.3 fl (7.4-10.4); Monocytes Absolute Auto 0.3 K/mm3 (0.1-0.6); Neutrophils Absolute Auto 4.4 K/mm3 (1.3-6.7); Neutrophils Percent Auto 81.5 % (45.5-73.1); Platelet Count Result 37 k/mm3 (150-375); Red Blood Count 2.32 M/mm3 (4.6-6.20); White Blood Count 5.4 K/mm3 (4.5-10.0)
[2022-02-05 04:37] LABS: Hemoglobin 7.1 g/dL (14.0-18.0)
[2022-02-05 04:44] LABS: Ammonia 17 umol/L (9-30)
[2022-02-05 04:46] LABS: Albumin Level 2.7 g/dL (3.5-5.1); Alkaline Phosphatase 63 U/L (38-126); Anion Gap 2 mmol/L (8-16); Bilirubin,Total 1.4 mg/dL (0.2-1.3); Blood Urea Nitrogen 77 mg/dL (9-20); Calcium 6.7 mg/dL (8.4-10.2); Carbon Dioxide 33 mmol/L (22-30); Chloride 107 mmol/L (98-107); Creatine Kinase 1397 U/L (55-170); Estimated CRCL calculation 35 ml/min; Estimated Glomerular Filt Rate 38; Glucose 170 mg/dL (65-110); Magnesium 2.7 mg/dL (1.6-2.3); Potassium 3.6 mmol/L (3.4-5.0); Sodium 142 mmol/L (137-145); Triglycerides 138 mg/dL (<150)
[2022-02-05 05:00] LABS: Alanine Aminotransferase 904 U/L (6-50)
[2022-02-05 05:07] LABS: Aspartate Amino Transferase 2111 U/L (17-59)
[2022-02-05] MEDS: DEXTROSE 5%/LACTATED RINGERS 1,000 ML 125 ML IV CONT (05:17)
[2022-02-05] MEDS: CENTRAL LINE FLUSH 10 ML IV PUSH ×3 (05:20→22:28)
[2022-02-05 05:36] LABS: Alveolar/Arterial O2 Gradient 53.2 mmHg; Base Excess ABG 5.1 mEq/l (+/-2.0); Carboxyhemoglobin 0.2 % THb (0-2.0); Fractional Inspired Oxygen 30 %; HCO3 ABG 28.5 mEq/l (22.0-26.0); Methemoglobin ABG 0.6 %THb (0-1.5); Oxygen Content ABG 10.8 %vol (16.0-22.0); Oxygen Saturation ABG 98.6 % (95.0-100.0); Oxyhemoglobin 96.3 % THb (90.0-100.0); PCO2 ABG 36.7 mmHg (35.0-45.0); PO2 ABG 117.6 mmHg (80.0-100.0); PO2 FiO2 Ratio Arterial Blood 3.92 %; Reduced Hemoglobin 2.9 %THb (0-5.0)
[2022-02-05 05:37] LABS: Device VENTILATOR; Modified Allen's Test Pass; Site Drawn LEFT RADIAL; Total Hemoglobin 7.8 g/dL (12.0-18.0); pH ABG 7.508 (7.350-7.450)
[2022-02-05 05:38] LABS: Arterial Blood Gas PEEP 5 cmH2O; Arterial Blood Gas Tidal Volume 400 ml; Arterial Blood Gas Vent Mode CMV; Arterial Blood Gas Ventilator rate 12 /MIN
[2022-02-05] MEDS: LACTULOSE 20 GM/30 ML UDC FEED TUBE ×2 (08:08→15:59)
[2022-02-05] MEDS: PANTOPRAZOLE SODIUM IV 40 MG VIAL IV PUSH ×2 (08:08→22:27)
[2022-02-05] MEDS: CALCIUM GLUC 2,000 MG/NS 100ML 2,000 MG/100 ML BAG 100 MG IVPB (08:09)
[2022-02-05] MEDS: MINERAL OIL/WHITE PETROLATUM OINTMENT 1 APPLIC EACH EYE ×2 (08:10→22:28)
[2022-02-05] MEDS: LACTATED RINGERS 1,000 ML 75 ML IV CONT ×2 (08:10→22:27)
--- NOTE | 2022-02-05 08:51 | WPDINTPN ---
Progress Note: A&P Assessment and Plan (1) Respiratory failure: Code(s): J96.90 - Respiratory failure, unspecified, unspecified whether with hypoxia or hypercapnia Status: Acute Assessment and Plan: Acute Respiratory failure secondary to influenza A, possible pneumonia, sepsis and encephalopathy Patient now intubated in ER and on mechanical ventilation Continue full mechanical ventilation support to prevent hypoxemia/hypercarbia and end organ damage. ABG reviewed decrease tidal volume to 350 and rate to 12 Chest x-ray reviewed -advance ET tube by 2 cm Low tidal volume ventilation strategy to prevent volutrauma Bronchodilators (2) Sepsis: Code(s): A41.9 - Sepsis, unspecified organism Status: Acute Assessment and Plan: Sepsis secondary to influenza A and pneumonia. Pneumonia could be aspiration or post influenza Patient received 30 mL/kg IV fluid bolus and IV fluids will be continued Lactic acid level improved Levophed has been weaned Blood culture sent and are negative as of now Pending urine pneumococcal and Legionella antigen Pending mycoplasma IgM Tamiflu will be continued On Empiric vancomycin and Zosyn (3) Influenza A: Code(s): J10.1 - Influenza due to other identified influenza virus with other respiratory manifestations Status: Acute Assessment and Plan: See above (4) Pneumonia: Code(s): J18.9 - Pneumonia, unspecified organism Status: Acute Assessment and Plan: See above (5) Hypothermia: Code(s): T68.XXXA - Hypothermia, initial encounter Status: Acute Assessment and Plan: Secondary to sepsis and environmental exposure Patient was treated with warming blanket and fluid warmer Temperature has normalized now (6) Encephalopathy: Code(s): G93.40 - Encephalopathy, unspecified Status: Acute Assessment and Plan: Toxic metabolic encephalopathy Head CT was negative TSH normal Ammonia level elevated and patient is on lactulose. Level improved Sedation holiday Will get EEG if no improvement despite treatment (7) Cirrhosis: Code(s): K74.60 - Unspecified cirrhosis of liver Status: Acute Assessment and Plan: Patient's clinical picture points towards per cirrhosis. He has elevated INR low albumin and elevated ammonia level Ultrasound showed Heterogeneous hepatic echotexture. Findings could reflect cirrhosis or other chronic liver disease. Correlate with any relevant clinical history. 2 partially hyperechoic hepatic masses measuring 2.4 and 1.4 cm in diameter respectively. These could reflect hemangiomas, but are somewhat indeterminate. Given the background heterogeneity of the liver, triple phase CT or pre and postcontrast MR of the liver recommended to better assess the imaging characteristics of these lesions, and of the liver overall. Gallbladder wall thickening without evidence of gallstone. This is a nonspecific finding. Viral panel was reactive for hepatitis C. Hep C viral PCR pending Vitamin K given Continue Lactulose for ammonia Patient currently intubated and cannot do MRI and also will hold the giving contrast due to acute renal failure (8) Elevated liver enzymes: Code(s): R74.8 - Abnormal levels of other serum enzymes Status: Acute Assessment and Plan: secondary to rhabdomyolysis and sepsis Tylenol level was normal Monitor LFTs which continue to be high Viral hepatitis panel shows reaction to hepatitis C antibody-RNA PCR pending Check right upper quadrant ultrasound consistent with cirrhosis (9) Hyperbilirubinemia: Code(s): E80.6 - Other disorders of bilirubin metabolism Status: Acute Assessment and Plan: See above (10) Coagulopathy: Code(s): D68.9 - Coagulation defect, unspecified Status: Acute Assessment and Plan: Elevated INR likely secondary to liver dysfunction Vitamin K was administered Monitor coags. May need FFP
--- NOTE | 2022-02-05 09:39 | PM.IMPN ---
Progress Note: A&P Assessment and Plan (1) Respiratory failure: Code(s): J96.90 - Respiratory failure, unspecified, unspecified whether with hypoxia or hypercapnia Status: Acute Assessment and Plan: Patient was found down at home and found to have acute respiratory failure secondary to influenza A, sepsis, encephalopathy possible pneumonia. Patient intubated in ER (02/03). Patient remains on mechanical ventilation. ABG 7.51/37/117 on MV. Settings adjusted Chest x-ray reviewed personally showing mild opacities in the LLL. Continue full mechanical ventilation support with low tidal volume ventilation strategy to prevent volutrauma Continue treatment with bronchodilators, Tamiflu and Abx. (2) Sepsis: Code(s): A41.9 - Sepsis, unspecified organism Status: Acute Assessment and Plan: Sepsis with septic shock secondary to influenza A and pneumonia. Pneumonia could be aspiration or post influenza bacterial PNA (suspect the latter) Patient received 30 mL/kg IV fluid bolus and IV fluids will be continued Lactic acid level 7.9 and now normal Levophed up to 10mcg/min but weaned off on 02/04 Blood culture negative to date Pending urine pneumococcal, Legionella antigen and mycoplasma IgM Tamiflu will be continued On Empiric vancomycin and Zosyn (3) Influenza A: Code(s): J10.1 - Influenza due to other identified influenza virus with other respiratory manifestations Status: Acute Assessment and Plan: See above. Continue Tamiflu (4) Pneumonia: Code(s): J18.9 - Pneumonia, unspecified organism Status: Acute Assessment and Plan: See above. (5) Hypothermia: Code(s): T68.XXXA - Hypothermia, initial encounter Status: Acute Assessment and Plan: Secondary to sepsis and environmental exposure Patient was treated with warming blanket and fluid warmer Temperature has normalized now (6) Encephalopathy: Code(s): G93.40 - Encephalopathy, unspecified Status: Acute Assessment and Plan: Toxic metabolic encephalopathy. Head CT was negative. TSH normal. Ammonia level elevated and patient is on lactulose. Level improved Sedation holiday but agitated so mild sedation resumed Will get EEG if no improvement despite treatment (7) Cirrhosis: Code(s): K74.60 - Unspecified cirrhosis of liver Status: Acute Assessment and Plan: Patient's clinical picture consistent with cirrhosis. He has elevated INR, low albumin and elevated ammonia level. Ultrasound showed Heterogeneous hepatic echotexture. Findings could reflect cirrhosis or other chronic liver disease. Correlate with any relevant clinical history. 2 partially hyperechoic hepatic masses measuring 2.4 and 1.4 cm in diameter respectively. These could reflect hemangiomas, but are somewhat indeterminate. Given the background heterogeneity of the liver, triple phase CT or pre and postcontrast MR of the liver recommended to better assess the imaging characteristics of these lesions, and of the liver overall. Gallbladder wall thickening without evidence of gallstone. This is a nonspecific finding. Viral panel was reactive for hepatitis C. Hep C viral PCR pending Vitamin K given Continue Lactulose for elevated ammonia Patient currently intubated and cannot do MRI and also will hold the giving contrast due to acute renal failure (8) Elevated liver enzymes: Code(s): R74.8 - Abnormal levels of other serum enzymes Status: Acute Assessment and Plan: Secondary to rhabdomyolysis and sepsis Tylenol level was normal. Abd US as mentioned above. Monitor LFTs which continue to climb Viral hepatitis panel shows reaction to hepatitis C antibody-RNA PCR pending Check right upper quadrant ultrasound consistent with cirrhosis (9) Coagulopathy: Code(s): D68.9 - Coagulation defect, unspecified Status: Acute Assessment and Plan: Elevated INR
[2022-02-05] MEDS: OSELTAMIVIR PHOSPHATE ORAL SUSP 75 MG/12.5 ML SYRINGE FEED TUBE ×2 (10:27→22:33)
--- NOTE | 2022-02-05 10:51 | WPDGIPROGNO ---
Progress Note: A&P Assessment and Plan (1) Upper GI bleed: Code(s): K92.2 - Gastrointestinal hemorrhage, unspecified Status: Acute Assessment and Plan: no more bleeding, monitor h/h, he required blood transfusion on admission on iv protonix, complete total of 72h iv octreotide (2) Varices of esophagus determined by endoscopy: Code(s): I85.00 - Esophageal varices without bleeding Status: Acute Assessment and Plan: s/p banding (3) Acute blood loss anemia: Code(s): D62 - Acute posthemorrhagic anemia Status: Acute (4) Septic shock: Code(s): A41.9 - Sepsis, unspecified organism; R65.21 - Severe sepsis with septic shock Status: Acute Assessment and Plan: on pressors (5) Acute kidney injury: Code(s): N17.9 - Acute kidney failure, unspecified Status: Acute (6) Cirrhosis: Code(s): K74.60 - Unspecified cirrhosis of liver Status: Acute Assessment and Plan: new diagnosis, HCV + tolerating tube feeding at goal (7) Rhabdomyolysis: Code(s): M62.82 - Rhabdomyolysis Status: Acute (8) Elevated liver enzymes: Code(s): R74.8 - Abnormal levels of other serum enzymes Status: Acute Assessment and Plan: from rhabdo, LUKASZ and probably also component of shock liver with underlying cirrhosis (9) Encephalopathy: Code(s): G93.40 - Encephalopathy, unspecified Status: Acute (10) Influenza A: Code(s): J10.1 - Influenza due to other identified influenza virus with other respiratory manifestations Status: Acute Assessment and Plan: on arrival (11) Pneumonia: Code(s): J18.9 - Pneumonia, unspecified organism Status: Acute Assessment and Plan: on antibiotics blood culture pending Subjective Date/time seen: 02/05/22 10:51 Interval history: egd yesterday showe EV s/p banding and gastritis (no bleeding), still intubated and agitated, on pressors. Review of Systems Review of Systems: ROS unobtainable: Yes unobtainable due to endotracheal tube and unobtainable due to mental status Exam Narrative: Gen - tachypneic and agitated HEENT - ETT and OGT secured. Poor dentition noted with broken teeth, tolerating tube feeding at goal Chest - distant breath sounds anteriorly, tachypneic CV - tachycardic, regular. Abd - Soft, ND, +BS. - Curry secured draining clear yellow urine Ext - No pedal edema. Right femoral line in place Neuro -agitated Skin - Warm and dry Objective Data Vital Signs Vital Signs: Vital Signs - 24 hr 02/04/22 12:00 02/04/22 12:00 02/04/22 12:00 Temperature 99.3 F Pulse Rate 103 H 99 99 Respiratory Rate 41 H 28 H Blood Pressure 120/63 Pulse Oximetry 99 98 Oxygen Delivery Mechanical Ventilation Fraction of Inspired Oxygen 02/04/22 12:00 02/04/22 14:00 02/04/22 14:00 Temperature 99.1 F 98.6 F Pulse Rate 99 108 H 108 H Respiratory Rate 28 H 41 H Blood Pressure 118/65 147/79 H Pulse Oximetry 98 99 Oxygen Delivery Fraction of Inspired Oxygen 02/04/22 13:41 02/04/22 14:40 02/04/22 14:45 Temperature 98.6 F Pulse Rate 102 H 103 H 103 H Respiratory Rate 43 H 30 H Blood Pressure 123/71 118/62 Pulse Oximetry 99 97 98 Oxygen Delivery Mechanical Ventilation Mechanical Ventilation Mechanical Ventilation Fraction of Inspired Oxygen 30 30 30 02/04/22 14:50 02/04/22 14:55 02/04/22 16:30 Temperature Pulse Rate 107 H 105 H 103 H Respiratory Rate 31 H 31 H Blood Pressure 139/75 137/74 Pulse Oximetry 98 98 98 Oxygen Delivery Mechanical Ventilation Mechanical Ventilation Mechanical Ventilation Fraction of Inspired Oxygen 30 30 30 02/04/22 16:00 02/04/22 16:00 02/04/22 18:00 Temperature 98.7 F Pulse Rate 102 H 102 H 101 H Respiratory Rate 25 H Blood Pressure 127/69 Pulse Oximetry 97 Oxygen Delivery Fraction of Inspired Oxygen 02/04/22 18:00 02/04/22 12:00 02/04/22
[2022-02-05 11:02] LABS: Glucose Point of Care 139 mg/dl (65-105)
[2022-02-05 12:06] LABS: Immature Platelet Fraction Pct 8.2 % (0.9-11.2); Mean Corpuscular HGB Conc 32.7 g/dl (32-36); Mean Corpuscular Volume 94.9 fl (80-100); Mean Platelet Volume 10.8 fl (7.4-10.4); Platelet Count Result 33 k/mm3 (150-375); Red Blood Count 2.16 M/mm3 (4.6-6.20); White Blood Count 5.1 K/mm3 (4.5-10.0)
[2022-02-05 12:14] LABS: Hematocrit 20.5 % (42.0-52.0); Hemoglobin 6.7 g/dL (14.0-18.0)
[2022-02-05 12:15] LABS: INR 2.6; Prothrombin Time 26.6 Seconds (11.1-14.7)
[2022-02-05 12:16] LABS: Partial Thromboplastin Time 41.8 SECONDS (22.3-36.8)
[2022-02-05] MEDS: PROPOFOL IV EMULSION 100 ML 8.4 MG IV CONT (15:45)
[2022-02-05] MEDS: INSULIN ASPART (*BKC) 100 UNITS/ML SUB-Q (17:26)
[2022-02-05] MEDS: SODIUM CHLORIDE 0.9% IV 250 ML 30 ML IV CONT (17:47)
[2022-02-05 18:07] LABS: Immature Platelet Fraction Pct 7.8 % (0.9-11.2); Mean Corpuscular HGB Conc 32.7 g/dl (32-36); Mean Corpuscular Hemoglobin 31.3 pg (26-34); Mean Corpuscular Volume 95.7 fl (80-100); Mean Platelet Volume 11.6 fl (7.4-10.4); Platelet Count Result 27 k/mm3 (150-375); Red Blood Count 2.08 M/mm3 (4.6-6.20); White Blood Count 3.9 K/mm3 (4.5-10.0)
[2022-02-05 18:22] LABS: Hematocrit 19.9 % (42.0-52.0); Hemoglobin 6.5 g/dL (14.0-18.0)
[2022-02-05 22:50] LABS: Glucose Point of Care 205 mg/dl (65-105)
[2022-02-06] VITALS (48 sets, daily range): BP systolic 123–164; BP diastolic 62–82; PULSE 40–95; RESP 19–32; TEMP 36.6–38; O2SAT 90–100
[2022-02-06] MEDS: PROPOFOL IV EMULSION 100 ML 13.44 MG IV CONT ×2 (00:36→09:08)
[2022-02-06] MEDS: [UNRECOGNIZED DRUG - REMARK] 1 EACH XX (00:37)
[2022-02-06] MEDS: ALBUMIN HUMAN 25% 25 GM/100 ML 100 ML IVPB ×2 (00:49→04:42)
[2022-02-06 01:15] LABS: Glucose Point of Care 132 mg/dl (65-105)
[2022-02-06] MEDS: CENTRAL LINE FLUSH 10 ML IV PUSH ×4 (04:11→20:50)
[2022-02-06 04:16] LABS: Base Excess ABG 7.8 mEq/l (+/-2.0); Carboxyhemoglobin 0.3 % THb (0-2.0); Fractional Inspired Oxygen 30 %; HCO3 ABG 31.4 mEq/l (22.0-26.0); Methemoglobin ABG 0.7 %THb (0-1.5); Oxygen Content ABG 10.4 %vol (16.0-22.0); Oxygen Saturation ABG 98.1 % (95.0-100.0); Oxyhemoglobin 95.4 % THb (90.0-100.0); PCO2 ABG 39.7 mmHg (35.0-45.0); PO2 ABG 100.3 mmHg (80.0-100.0); PO2 FiO2 Ratio Arterial Blood 3.34 %; Reduced Hemoglobin 3.6 %THb (0-5.0)
[2022-02-06 04:30] LABS: Device VENTILATOR; Modified Allen's Test Pass; Site Drawn RIGHT RADIAL; Total Hemoglobin 7.6 g/dL (12.0-18.0); pH ABG 7.516 (7.350-7.450)
[2022-02-06 04:32] LABS: Arterial Blood Gas PEEP 5 cmH2O; Arterial Blood Gas Vent Mode CMV; Arterial Blood Gas Ventilator rate 12 /MIN
[2022-02-06 04:33] LABS: Arterial Blood Gas Tidal Volume 350 ml
[2022-02-06 05:50] LABS: Basophils Percent Auto 0.3 % (0.2-1.2); Eosinophils Percent Auto 0.3 % (0-4.4); Hematocrit 21.2 % (42.0-52.0); Immature Granulocyte Absolute 0.17 K/mm3 (0.00-0.031); Immature Granulocyte Percent A 4.8 % (0-0.5); Lymphocytes Percent Auto 19.8 % (18.3-44.2); Mean Corpuscular HGB Conc 31.6 g/dl (32-36); Mean Corpuscular Hemoglobin 30.5 pg (26-34); Mean Corpuscular Volume 96.4 fl (80-100); Mean Platelet Volume 10.3 fl (7.4-10.4); Monocytes Absolute Auto 0.3 K/mm3 (0.1-0.6); Neutrophils Absolute Auto 2.3 K/mm3 (1.3-6.7); Neutrophils Percent Auto 65.8 % (45.5-73.1); Nucleated Red Blood Cells Perc 0.6 % (0.0-0.2); Platelet Count Result 48 k/mm3 (150-375); Red Cell Distribution Width 16.7 % (11.5-14.5); White Blood Count 3.5 K/mm3 (4.5-10.0)
[2022-02-06 05:55] LABS: Ammonia < 9 umol/L (9-30)
[2022-02-06 05:59] LABS: INR 2.3; Prothrombin Time 24.7 Seconds (11.1-14.7)
[2022-02-06 06:17] LABS: Alanine Aminotransferase 431 U/L (6-50); Albumin Level 3.4 g/dL (3.5-5.1); Alkaline Phosphatase 73 U/L (38-126); Anion Gap 1 mmol/L (8-16); Bilirubin,Total 1.7 mg/dL (0.2-1.3); Blood Urea Nitrogen 50 mg/dL (9-20); Calcium 7.8 mg/dL (8.4-10.2); Carbon Dioxide 36 mmol/L (22-30); Chloride 113 mmol/L (98-107); Creatine Kinase 776 U/L (55-170); Estimated CRCL calculation 43 ml/min; Estimated Glomerular Filt Rate 47; Glucose 147 mg/dL (65-110); Hemoglobin 6.7 g/dL (14.0-18.0); Magnesium 2.8 mg/dL (1.6-2.3); Potassium 2.9 mmol/L (3.4-5.0); Sodium 150 mmol/L (137-145)
[2022-02-06 06:31] LABS: Aspartate Amino Transferase 801 U/L (17-59)
[2022-02-06] MEDS: KCL 40 MEQ/WATER 100 ML 100 ML 25 ML IVPB (08:27)
[2022-02-06] MEDS: KCL 20 MEQ/D5W 1,000 ML 1,000 ML 100 ML IV CONT (08:27)
[2022-02-06] MEDS: MINERAL OIL/WHITE PETROLATUM OINTMENT 1 APPLIC EACH EYE ×2 (08:28→20:49)
[2022-02-06] MEDS: OSELTAMIVIR PHOSPHATE ORAL SUSP 75 MG/12.5 ML SYRINGE FEED TUBE ×2 (08:28→20:49)
[2022-02-06] MEDS: LACTULOSE 20 GM/30 ML UDC FEED TUBE (08:28)
[2022-02-06] MEDS: PHYTONADIONE 5 MG TABLET 10 MG FEED TUBE (08:28)
[2022-02-06] MEDS: PANTOPRAZOLE SODIUM IV 40 MG VIAL IV PUSH ×2 (08:28→20:49)
[2022-02-06] MEDS: POTASSIUM CHLORIDE 20 MEQ PACKET (FOR LIQUID) 40 MEQ FEED TUBE ×2 (08:28→18:45)
--- NOTE | 2022-02-06 09:39 | WPDINTPN ---
Progress Note: A&P Assessment and Plan (1) Respiratory failure: Code(s): J96.90 - Respiratory failure, unspecified, unspecified whether with hypoxia or hypercapnia Status: Acute Assessment and Plan: Acute Respiratory failure secondary to influenza A, possible pneumonia, sepsis and encephalopathy Patient now intubated in ER and on mechanical ventilation Continue full mechanical ventilation support to prevent hypoxemia/hypercarbia and end organ damage. ABG reviewed decrease tidal volume to 300 and rate to 12 Chest x-ray reviewed Low tidal volume ventilation strategy to prevent volutrauma Bronchodilators (2) Sepsis: Code(s): A41.9 - Sepsis, unspecified organism Status: Acute Assessment and Plan: Sepsis secondary to influenza A and pneumonia. Pneumonia could be aspiration or post influenza Patient received 30 mL/kg IV fluid bolus and IV fluids will be continued Lactic acid level improved Levophed has been weaned Blood culture sent and are negative as of now Pending urine pneumococcal and Legionella antigen Pending mycoplasma IgM Tamiflu will be continued On Empiric vancomycin and Zosyn (3) Influenza A: Code(s): J10.1 - Influenza due to other identified influenza virus with other respiratory manifestations Status: Acute Assessment and Plan: See above (4) Pneumonia: Code(s): J18.9 - Pneumonia, unspecified organism Status: Acute Assessment and Plan: See above (5) Hypothermia: Code(s): T68.XXXA - Hypothermia, initial encounter Status: Acute Assessment and Plan: Secondary to sepsis and environmental exposure Patient was treated with warming blanket and fluid warmer Temperature has normalized now (6) Encephalopathy: Code(s): G93.40 - Encephalopathy, unspecified Status: Acute Assessment and Plan: Toxic metabolic encephalopathy Head CT was negative TSH normal Ammonia level elevated and patient is on lactulose. Level improved Sedation holiday Will order EEG for tomorrow (7) Cirrhosis: Code(s): K74.60 - Unspecified cirrhosis of liver Status: Acute Assessment and Plan: Patient's clinical picture points towards per cirrhosis. He has elevated INR low albumin and elevated ammonia level Ultrasound showed Heterogeneous hepatic echotexture. Findings could reflect cirrhosis or other chronic liver disease. Correlate with any relevant clinical history. 2 partially hyperechoic hepatic masses measuring 2.4 and 1.4 cm in diameter respectively. These could reflect hemangiomas, but are somewhat indeterminate. Given the background heterogeneity of the liver, triple phase CT or pre and postcontrast MR of the liver recommended to better assess the imaging characteristics of these lesions, and of the liver overall. Gallbladder wall thickening without evidence of gallstone. This is a nonspecific finding. Viral panel was reactive for hepatitis C. Hep C viral PCR pending Vitamin K given Continue Lactulose for ammonia which has improved Patient currently intubated and cannot do MRI and also will hold the giving contrast due to acute renal failure (8) Elevated liver enzymes: Code(s): R74.8 - Abnormal levels of other serum enzymes Status: Acute Assessment and Plan: secondary to rhabdomyolysis and sepsis Tylenol level was normal Monitor LFTs which continue to be high Viral hepatitis panel shows reaction to hepatitis C antibody-RNA PCR pending Check right upper quadrant ultrasound consistent with cirrhosis (9) Hyperbilirubinemia: Code(s): E80.6 - Other disorders of bilirubin metabolism Status: Acute Assessment and Plan: See above (10) Coagulopathy: Code(s): D68.9 - Coagulation defect, unspecified Status: Acute Assessment and Plan: Elevated INR likely secondary to liver dysfunction Vitamin K was administered and will give additional today He has received 2 units
[2022-02-06 12:04] LABS: Glucose Point of Care 178 mg/dl (65-105)
[2022-02-06 12:18] LABS: Hematocrit 23.5 % (42.0-52.0); Hemoglobin 7.6 g/dL (14.0-18.0); Immature Platelet Fraction Pct 6.7 % (0.9-11.2); Mean Corpuscular HGB Conc 32.3 g/dl (32-36); Mean Corpuscular Hemoglobin 30.9 pg (26-34); Mean Corpuscular Volume 95.5 fl (80-100); Mean Platelet Volume 10.8 fl (7.4-10.4); Platelet Count Result 42 k/mm3 (150-375); Red Blood Count 2.46 M/mm3 (4.6-6.20); Red Cell Distribution Width 16.5 % (11.5-14.5); White Blood Count 3.9 K/mm3 (4.5-10.0)
--- NOTE | 2022-02-06 13:30 | WPDGIPROGNO ---
Progress Note: A&P Assessment and Plan (1) Upper GI bleed: Code(s): K92.2 - Gastrointestinal hemorrhage, unspecified Status: Acute Assessment and Plan: no more bleeding but h/h down- this is setting of cirrhosis with coagulopathy- this is been treated with blood products on iv protonix, complete another 24 hours iv octreotide (2) Varices of esophagus determined by endoscopy: Code(s): I85.00 - Esophageal varices without bleeding Status: Acute Assessment and Plan: s/p banding (3) Acute blood loss anemia: Code(s): D62 - Acute posthemorrhagic anemia Status: Acute Assessment and Plan: trend h/h s/p one more unit prbc (4) Septic shock: Code(s): A41.9 - Sepsis, unspecified organism; R65.21 - Severe sepsis with septic shock Status: Acute Assessment and Plan: he is not requiring more pressors (5) Cirrhosis: Code(s): K74.60 - Unspecified cirrhosis of liver Status: Acute Assessment and Plan: new diagnosis, HCV + pending RNA noted liver mass- when more stable this can be study further with MRI triple phase liver protocol tolerating tube feeding at goal (6) Elevated liver enzymes: Code(s): R74.8 - Abnormal levels of other serum enzymes Status: Acute Assessment and Plan: from rhabdo, LUKASZ and probably also component of shock liver with underlying cirrhosis (7) Acute kidney injury: Code(s): N17.9 - Acute kidney failure, unspecified Status: Acute (8) Rhabdomyolysis: Code(s): M62.82 - Rhabdomyolysis Status: Acute (9) Encephalopathy: Code(s): G93.40 - Encephalopathy, unspecified Status: Acute Assessment and Plan: on lactulose ammonia better this is multifactorial (10) Influenza A: Code(s): J10.1 - Influenza due to other identified influenza virus with other respiratory manifestations Status: Acute Assessment and Plan: on isolation (11) Pneumonia: Code(s): J18.9 - Pneumonia, unspecified organism Status: Acute Assessment and Plan: on antibiotics blood culture pending (12) Thrombocytopenia: Code(s): D69.6 - Thrombocytopenia, unspecified Status: Acute (13) Coagulopathy: Code(s): D68.9 - Coagulation defect, unspecified Status: Acute Assessment and Plan: from sepsis and decompensated cirrhosis treated now monitor coags Subjective Date/time seen: 02/06/22 13:30 Interval history: no signs of bleeding but hb down, received another unit prbc, also FFP. He will become agitated after turning off sedation but is not following commands and can not wean Review of Systems Review of Systems: All systems reviewed & are unremarkable except as noted in HPI and below Exam Narrative: Gen - tachypneic, sedated HEENT - ETT and OGT secured. Poor dentition, tolerating tube feeding at goal Chest - distant breath sounds anteriorly, tachypneic CV - regular. Abd - Soft, ND, +BS. - Curry secured draining clear yellow urine Ext - No pedal edema. Right femoral line in place Neuro -agitated Skin - Warm and dry Objective Data Vital Signs Vital Signs: Vital Signs - 24 hr 02/05/22 13:52 02/05/22 14:00 02/05/22 14:00 Temperature 100 F H Pulse Rate 108 H 109 H 109 H Respiratory Rate 22 H 22 H Blood Pressure 156/73 H Pulse Oximetry 94 Oxygen Delivery Fraction of Inspired Oxygen 02/05/22 14:56 02/05/22 14:59 02/05/22 15:45 Temperature 100.0 F H Pulse Rate 101 H 100 97 Respiratory Rate 18 23 H 25 H Blood Pressure 149/72 H Pulse Oximetry 98 Oxygen Delivery Fraction of Inspired Oxygen 02/05/22 15:45 02/05/22 16:00 02/05/22 16:00 Temperature 99.6 F Pulse Rate 97 96 Respiratory Rate 25 H 16 Blood Pressure 143/71 H Pulse Oximetry 99 Oxygen Delivery Fraction of Inspired Oxygen 30 02/05/22 16:00 02/05/22 15:09 02/05/22 17:19 Temperature Pulse
[2022-02-06] MEDS: PROPOFOL IV EMULSION 100 ML 15.12 MG IV CONT ×2 (15:09→21:03)
[2022-02-06 16:39] LABS: Vancomycin Trough 7.6 ug/mL (10.0-20.0)
[2022-02-06 17:28] LABS: Glucose Point of Care 154 mg/dl (65-105)
[2022-02-06 18:22] LABS: Hematocrit 23.8 % (42.0-52.0); Hemoglobin 7.6 g/dL (14.0-18.0); Immature Platelet Fraction Pct 7.7 % (0.9-11.2); Mean Corpuscular HGB Conc 31.9 g/dl (32-36); Mean Corpuscular Hemoglobin 30.8 pg (26-34); Mean Corpuscular Volume 96.4 fl (80-100); Mean Platelet Volume 11.2 fl (7.4-10.4); Platelet Count Result 39 k/mm3 (150-375); Red Blood Count 2.47 M/mm3 (4.6-6.20); Red Cell Distribution Width 16.9 % (11.5-14.5); White Blood Count 4.1 K/mm3 (4.5-10.0)
[2022-02-06 18:30] LABS: Anion Gap 1 mmol/L (8-16); Blood Urea Nitrogen 43 mg/dL (9-20); Calcium 7.5 mg/dL (8.4-10.2); Carbon Dioxide 36 mmol/L (22-30); Chloride 111 mmol/L (98-107); Estimated CRCL calculation 53 ml/min; Estimated Glomerular Filt Rate > 60; Glucose 170 mg/dL (65-110); Potassium 3.4 mmol/L (3.4-5.0); Sodium 148 mmol/L (137-145)
[2022-02-07] VITALS (30 sets, daily range): BP systolic 112–158; BP diastolic 61–85; PULSE 66–97; RESP 18–29; TEMP 36.5–38.4; O2SAT 93–99; BMI 22.5
[2022-02-07 00:27] LABS: Hematocrit 24.3 % (42.0-52.0); Hemoglobin 7.8 g/dL (14.0-18.0); Immature Platelet Fraction Pct 6.8 % (0.9-11.2); Mean Corpuscular HGB Conc 32.1 g/dl (32-36); Mean Corpuscular Hemoglobin 30.8 pg (26-34); Mean Platelet Volume 10.9 fl (7.4-10.4); Platelet Count Result 39 k/mm3 (150-375); Red Blood Count 2.53 M/mm3 (4.6-6.20); Red Cell Distribution Width 17.2 % (11.5-14.5); White Blood Count 4.4 K/mm3 (4.5-10.0)
[2022-02-07 00:37] LABS: Glucose Point of Care 110 mg/dl (65-105)
[2022-02-07] MEDS: PROPOFOL IV EMULSION 100 ML 15.12 MG IV CONT (02:25)
[2022-02-07 04:59] LABS: Ammonia 12 umol/L (9-30)
[2022-02-07 05:00] LABS: Alanine Aminotransferase 313 U/L (6-50); Alkaline Phosphatase 92 U/L (38-126); Anion Gap 0 mmol/L (8-16); Aspartate Amino Transferase 429 U/L (17-59); Bilirubin,Total 2.2 mg/dL (0.2-1.3); Blood Urea Nitrogen 39 mg/dL (9-20); Calcium 7.3 mg/dL (8.4-10.2); Carbon Dioxide 35 mmol/L (22-30); Chloride 113 mmol/L (98-107); Creatine Kinase 361 U/L (55-170); Estimated CRCL calculation 58 ml/min; Estimated Glomerular Filt Rate > 60; Glucose 113 mg/dL (65-110); Magnesium 2.7 mg/dL (1.6-2.3); Potassium 3.8 mmol/L (3.4-5.0); Sodium 148 mmol/L (137-145); Triglycerides 106 mg/dL (<150)
[2022-02-07 05:01] LABS: INR 1.6
[2022-02-07 05:20] LABS: Alveolar/Arterial O2 Gradient 121.8 mmHg; Base Excess ABG 5.7 mEq/l (+/-2.0); Carboxyhemoglobin 0.2 % THb (0-2.0); Fractional Inspired Oxygen 35 %; HCO3 ABG 31.2 mEq/l (22.0-26.0); Methemoglobin ABG 0.5 %THb (0-1.5); Oxygen Content ABG 10.9 %vol (16.0-22.0); Oxygen Saturation ABG 93.4 % (95.0-100.0); Oxyhemoglobin 91.3 % THb (90.0-100.0); PCO2 ABG 51.3 mmHg (35.0-45.0); PO2 ABG 68.1 mmHg (80.0-100.0); PO2 FiO2 Ratio Arterial Blood 1.95 %; Total Hemoglobin 8.4 g/dL (12.0-18.0); pH ABG 7.402 (7.350-7.450)
[2022-02-07 05:22] LABS: Device VENTILATOR; Modified Allen's Test Pass; Site Drawn RIGHT RADIAL
[2022-02-07 05:23] LABS: Arterial Blood Gas PEEP 5 cmH2O; Arterial Blood Gas Tidal Volume 300 ml; Arterial Blood Gas Vent Mode CMV; Arterial Blood Gas Ventilator rate 12 /MIN
[2022-02-07] MEDS: CENTRAL LINE FLUSH 10 ML IV PUSH ×4 (05:26→20:32)
[2022-02-07 05:28] LABS: Basophils Percent Auto 0.5 % (0.2-1.2); Eosinophils Absolute Auto 0.2 K/mm3 (0-0.3); Eosinophils Percent Auto 3.4 % (0-4.4); Hematocrit 24.9 % (42.0-52.0); Hemoglobin 7.9 g/dL (14.0-18.0); Immature Granulocyte Absolute 0.31 K/mm3 (0.00-0.031); Lymphocytes Absolute Auto 0.87 K/mm3 (0.9-3.2); Lymphocytes Percent Auto 19.7 % (18.3-44.2); Mean Corpuscular HGB Conc 31.7 g/dl (32-36); Mean Corpuscular Volume 97.6 fl (80-100); Mean Platelet Volume 11.7 fl (7.4-10.4); Monocytes Absolute Auto 0.5 K/mm3 (0.1-0.6); Monocytes Percent Auto 10.7 % (2.6-8.5); Neutrophils Absolute Auto 2.6 K/mm3 (1.3-6.7); Neutrophils Percent Auto 58.7 % (45.5-73.1); Nucleated Red Blood Cells Perc 0.9 % (0.0-0.2); Platelet Count Result 40 k/mm3 (150-375); Red Blood Count 2.55 M/mm3 (4.6-6.20); White Blood Count 4.4 K/mm3 (4.5-10.0)
[2022-02-07 06:44] LABS: Legionella pneumophila Ag Ur Not Detected (Not Detected)
[2022-02-07 06:44] LABS: Hepatitis C RNA, Quant PCR 419000 IU/mL
--- NOTE | 2022-02-07 08:34 | WPDGIPROGNO ---
Progress Note: A&P Assessment and Plan (1) Upper GI bleed: Code(s): K92.2 - Gastrointestinal hemorrhage, unspecified Status: Acute Assessment and Plan: no active bleeding, patient here with cirrhosis, sepsis with coagulopathy- it was treated with blood products on iv protonix, will complete iv octreotide today on antibiotics (2) Varices of esophagus determined by endoscopy: Code(s): I85.00 - Esophageal varices without bleeding Status: Acute Assessment and Plan: s/p banding (3) Acute blood loss anemia: Code(s): D62 - Acute posthemorrhagic anemia Status: Acute Assessment and Plan: trend h/h yesterday one more unit prbc and has not required any more (4) Septic shock: Code(s): A41.9 - Sepsis, unspecified organism; R65.21 - Severe sepsis with septic shock Status: Acute Assessment and Plan: resolved on abx (5) Cirrhosis: Code(s): K74.60 - Unspecified cirrhosis of liver Status: Acute Assessment and Plan: new diagnosis, HCV + pending RNA noted liver mass- when more stable this can be study further with either CT or MRI triple phase liver protocol will check AFP level tolerating tube feeding at goal (6) Elevated liver enzymes: Code(s): R74.8 - Abnormal levels of other serum enzymes Status: Acute Assessment and Plan: from rhabdo, LUKASZ and probably also component of shock liver with underlying cirrhosis (7) Acute kidney injury: Code(s): N17.9 - Acute kidney failure, unspecified Status: Acute (8) Rhabdomyolysis: Code(s): M62.82 - Rhabdomyolysis Status: Acute (9) Encephalopathy: Code(s): G93.40 - Encephalopathy, unspecified Status: Acute Assessment and Plan: on lactulose ammonia better this is multifactorial (10) Influenza A: Code(s): J10.1 - Influenza due to other identified influenza virus with other respiratory manifestations Status: Acute Assessment and Plan: on isolation (11) Pneumonia: Code(s): J18.9 - Pneumonia, unspecified organism Status: Acute Assessment and Plan: on antibiotics blood culture pending (12) Thrombocytopenia: Code(s): D69.6 - Thrombocytopenia, unspecified Status: Acute (13) Coagulopathy: Code(s): D68.9 - Coagulation defect, unspecified Status: Acute Assessment and Plan: from sepsis and decompensated cirrhosis treated now monitor coags Subjective Date/time seen: 02/07/22 08:34 Interval history: no signs of bleeding, tolerating tube feeding by OGT. Primary trying off sedation to assess neurological status and breathing weaning trial Review of Systems Review of Systems: All systems reviewed & are unremarkable except as noted in HPI and below Exam Narrative: Gen - chronically ill appearing, intubated HEENT - ETT and OGT secured. Poor dentition, tolerating tube feeding at goal Chest - distant breath sounds anteriorly, no wheezes CV - regular. Abd - Soft, ND, +BS. - Curry secured draining clear yellow urine Ext - No pedal edema. Right femoral line in place Neuro - spontaneous movement Skin - Warm and dry Objective Data Vital Signs Vital Signs: Vital Signs - 24 hr 02/06/22 08:49 02/06/22 08:45 02/06/22 09:07 Temperature 98.9 F Pulse Rate 89 92 92 Respiratory Rate 30 H 32 H 28 H Blood Pressure 154/71 H Pulse Oximetry 92 Oxygen Delivery Fraction of Inspired Oxygen 02/06/22 09:08 02/06/22 09:04 02/06/22 10:00 Temperature 99.2 F 99.3 F Pulse Rate 92 90 89 Respiratory Rate 28 H 28 H 28 H Blood Pressure 159/77 H 147/74 H Pulse Oximetry 90 92 Oxygen Delivery Fraction of Inspired Oxygen 02/06/22 10:00 02/06/22 10:04 02/06/22 10:24 Temperature 99.3 F Pulse Rate 88 90 92 Respiratory Rate 28 H 28 H Blood Pressure 147/74 H Pulse Oximetry 100 Oxygen Delivery Fraction of Inspired Oxygen 02/06/22
[2022-02-07] MEDS: POTASSIUM CHLORIDE 20 MEQ PACKET (FOR LIQUID) 40 MEQ FEED TUBE (08:37)
[2022-02-07] MEDS: MINERAL OIL/WHITE PETROLATUM OINTMENT 1 APPLIC EACH EYE ×2 (08:37→20:31)
[2022-02-07] MEDS: PANTOPRAZOLE SODIUM IV 40 MG VIAL IV PUSH ×2 (08:38→20:31)
[2022-02-07] MEDS: LACTULOSE 20 GM/30 ML UDC FEED TUBE (08:38)
[2022-02-07] MEDS: PROPOFOL IV EMULSION 100 ML 11.76 MG IV CONT (08:40)
[2022-02-07] MEDS: CALCIUM GLUC 2,000 MG/NS 100ML 2,000 MG/100 ML BAG 100 MG IVPB (09:34)
[2022-02-07] MEDS: FUROSEMIDE INJ 40 MG/4 ML VIAL IV PUSH (09:34)
--- NOTE | 2022-02-07 10:18 | WPDINTPN ---
Progress Note: A&P Assessment and Plan (1) Respiratory failure: Code(s): J96.90 - Respiratory failure, unspecified, unspecified whether with hypoxia or hypercapnia Status: Acute Assessment and Plan: Acute Respiratory failure secondary to influenza A, possible pneumonia, sepsis and encephalopathy Patient now intubated in ER and on mechanical ventilation Continue full mechanical ventilation support to prevent hypoxemia/hypercarbia and end organ damage. ABG reviewed increase tidal volume to 350 and rate to 12 Chest x-ray reviewed Low tidal volume ventilation strategy to prevent volutrauma Bronchodilators (2) Sepsis: Code(s): A41.9 - Sepsis, unspecified organism Status: Acute Assessment and Plan: Sepsis secondary to influenza A and pneumonia. Pneumonia could be aspiration or post influenza Patient received 30 mL/kg IV fluid bolus and IV fluids will be continued Lactic acid level improved Levophed has been weaned Blood culture sent and are negative as of now Sputum grew yeast Pending urine pneumococcal Legionella antigen was negative Low mycoplasma IgM Tamiflu will be continued On Empiric vancomycin and Zosyn. I will discontinue vancomycin continue Zosyn (3) Influenza A: Code(s): J10.1 - Influenza due to other identified influenza virus with other respiratory manifestations Status: Acute Assessment and Plan: See above (4) Pneumonia: Code(s): J18.9 - Pneumonia, unspecified organism Status: Acute Assessment and Plan: See above (5) Hypothermia: Code(s): T68.XXXA - Hypothermia, initial encounter Status: Acute Assessment and Plan: Secondary to sepsis and environmental exposure Patient was treated with warming blanket and fluid warmer Temperature has normalized now (6) Encephalopathy: Code(s): G93.40 - Encephalopathy, unspecified Status: Acute Assessment and Plan: Toxic metabolic encephalopathy Initial Head CT was negative TSH normal Ammonia level elevated and patient is on lactulose. Level improved Sedation holiday but patient had not shown any significant improvement in mental status Unable to do MRI on a vented patient in [facility]. Will obtain repeat CT scan and also order EEG for tomorrow (7) Cirrhosis: Code(s): K74.60 - Unspecified cirrhosis of liver Status: Acute Assessment and Plan: Patient's clinical picture points towards per cirrhosis. He has elevated INR low albumin and elevated ammonia level Ultrasound showed Heterogeneous hepatic echotexture. Findings could reflect cirrhosis or other chronic liver disease. Correlate with any relevant clinical history. 2 partially hyperechoic hepatic masses measuring 2.4 and 1.4 cm in diameter respectively. These could reflect hemangiomas, but are somewhat indeterminate. Given the background heterogeneity of the liver, triple phase CT or pre and postcontrast MR of the liver recommended to better assess the imaging characteristics of these lesions, and of the liver overall. Gallbladder wall thickening without evidence of gallstone. This is a nonspecific finding. Viral hepatitis panel shows reaction to hepatitis C antibody-RNA PCR [id number] Vitamin K x 2 given Continue Lactulose and maintain is still for ammonia which has improved Patient currently intubated and cannot do MRI and also will hold the giving contrast due to acute renal failure (8) Elevated liver enzymes: Code(s): R74.8 - Abnormal levels of other serum enzymes Status: Acute Assessment and Plan: secondary to rhabdomyolysis and sepsis Tylenol level was normal Monitor LFTs which are improving Viral hepatitis panel shows reaction to hepatitis C antibody-RNA PCR [id number] Right upper quadrant ultrasound consistent with cirrhosis (9) Hyperbilirubinemia: Code(s): E80.6 - Other disorders of bilirubin metabolism Status: Acute Assessment and Plan: See above
[2022-02-07 10:21] LABS: Mycoplasma IgM Antibody Titer 15 U/mL (<770)
[2022-02-07] MEDS: OSELTAMIVIR PHOSPHATE ORAL SUSP 75 MG/12.5 ML SYRINGE FEED TUBE ×2 (10:29→20:31)
[2022-02-07] MEDS: LABETALOL HCL INJ 100 MG/20 ML VIAL 20 MG IV PUSH (11:23)
[2022-02-07 12:18] LABS: Glucose Point of Care 135 mg/dl (65-105)
[2022-02-07] MEDS: ACETAMINOPHEN ELIXIR 325 MG/10.15 ML UDC 650 MG PO (14:21)
--- NOTE | 2022-02-07 15:02 | PCFNICU ---
ICU Rounding Note: Pt current nutrition is Vital 1.2 @ 60 ml/h. Flushes 200 ml q 4 hours. Provides 1584 kcals, 99 g protein. [id number] kcals. Total kcals 1894/day Nutrition recommendation: Continue same goal rate Last recorded weight is 75.4 kg. Bowel Motility: Output per fecal containment device Labs Reviewed: Hgb 7.9, Hct 24.9, Alb 3.0, Na 148, Glu 113, TRIG 106 Meds Noted: Propofol. Levophed is off. Protonix, zosyb Skin: WNL Additional Notes: Tolerating tube feeding at goal. Continue same goal rate. Following daily in ICU rounds. Will reassess every Monday and Monday..
[2022-02-07] MEDS: PROPOFOL IV EMULSION 100 ML 13.44 MG IV CONT (16:38)
[2022-02-07 17:31] LABS: Glucose Point of Care 146 mg/dl (65-105)
[2022-02-07 23:15] LABS: Glucose Point of Care 138 mg/dl (65-105)
[2022-02-08] VITALS (35 sets, daily range): BP systolic 119–164; BP diastolic 63–91; PULSE 56–82; RESP 19–74; TEMP 36.3–38; O2SAT 95–100
[2022-02-08] MEDS: PROPOFOL IV EMULSION 100 ML 13.44 MG IV CONT ×4 (00:10→21:30)
[2022-02-08 04:55] LABS: Hematocrit 26.6 % (42.0-52.0); Hemoglobin 8.3 g/dL (14.0-18.0); Immature Platelet Fraction Pct 8.1 % (0.9-11.2); Mean Corpuscular HGB Conc 31.2 g/dl (32-36); Mean Corpuscular Hemoglobin 30.4 pg (26-34); Mean Corpuscular Volume 97.4 fl (80-100); Mean Platelet Volume 11.7 fl (7.4-10.4); Platelet Count Result 44 k/mm3 (150-375); Red Blood Count 2.73 M/mm3 (4.6-6.20); Red Cell Distribution Width 17.5 % (11.5-14.5); White Blood Count 5.4 K/mm3 (4.5-10.0)
[2022-02-08 05:05] LABS: Alanine Aminotransferase 258 U/L (6-50); Albumin Level 3.1 g/dL (3.5-5.1); Alkaline Phosphatase 110 U/L (38-126); Anion Gap 3 mmol/L (8-16); Aspartate Amino Transferase 251 U/L (17-59); Bilirubin,Total 2.1 mg/dL (0.2-1.3); Blood Urea Nitrogen 42 mg/dL (9-20); Calcium 7.6 mg/dL (8.4-10.2); Carbon Dioxide 36 mmol/L (22-30); Chloride 114 mmol/L (98-107); Creatine Kinase 154 U/L (55-170); Estimated CRCL calculation 53 ml/min; Estimated Glomerular Filt Rate > 60; Glucose 125 mg/dL (65-110); Magnesium 2.5 mg/dL (1.6-2.3); Potassium 3.6 mmol/L (3.4-5.0); Sodium 153 mmol/L (137-145)
[2022-02-08 05:10] LABS: INR 1.5; Prothrombin Time 17.8 Seconds (11.1-14.7)
[2022-02-08 05:13] LABS: Ammonia < 9 umol/L (9-30)
[2022-02-08 05:34] LABS: Band Neutrophils Percent 11 % (0-6); Basophils Percent Manual 2 % (0-1); Eosinophils Absolute Manual 0.91 K/mm3 (0.02-0.5); Eosinophils Percent Manual 17 % (0-4); Hypochromasia 2+ (NORMAL); Lymphocytes Absolute Manual 0.81 K/mm3 (1.1-4.5); Metamyelocytes Percent 3 %; Monocytes Absolute Manual 0.21 K/mm3 (0.1-0.90); Monocytes Percent Manual 4 % (3-9); Neutrophils Absolute Manual 3.18 K/mm3 (1.3-6.7); Neutrophils Percent Manual 48 % (46-73); Platelet Estimate Decreased (Adequate); Schistocytes None Seen (NORMAL); Target Cells 1+ (NORMAL); Total Cells Counted 100
[2022-02-08 05:50] LABS: Alveolar/Arterial O2 Gradient 81.4 mmHg; Carboxyhemoglobin 0.2 % THb (0-2.0); Fractional Inspired Oxygen 30 %; HCO3 ABG 33.3 mEq/l (22.0-26.0); Methemoglobin ABG 0.4 %THb (0-1.5); Oxygen Content ABG 12.8 %vol (16.0-22.0); Oxygen Saturation ABG 96.5 % (95.0-100.0); Oxyhemoglobin 94.4 % THb (90.0-100.0); PCO2 ABG 44.7 mmHg (35.0-45.0); PO2 FiO2 Ratio Arterial Blood 2.67 %; Total Hemoglobin 9.6 g/dL (12.0-18.0)
[2022-02-08 05:51] LABS: Arterial Blood Gas PEEP 5 cmH2O; Arterial Blood Gas Tidal Volume 350 ml; Arterial Blood Gas Vent Mode CMV; Arterial Blood Gas Ventilator rate 12 /MIN; Device VENTILATOR; Modified Allen's Test Pass; Site Drawn RIGHT RADIAL
[2022-02-08] MEDS: CENTRAL LINE FLUSH 10 ML IV PUSH ×4 (05:55→21:35)
[2022-02-08] MEDS: MINERAL OIL/WHITE PETROLATUM OINTMENT 1 APPLIC EACH EYE ×2 (08:31→21:34)
[2022-02-08] MEDS: PANTOPRAZOLE SODIUM IV 40 MG VIAL IV PUSH ×2 (08:31→21:34)
[2022-02-08] MEDS: LACTULOSE 20 GM/30 ML UDC FEED TUBE (08:31)
[2022-02-08] MEDS: FUROSEMIDE INJ 40 MG/4 ML VIAL 20 MG IV PUSH (08:31)
--- NOTE | 2022-02-08 09:22 | WPDINTPN ---
Progress Note: A&P Assessment and Plan (1) Respiratory failure: Code(s): J96.90 - Respiratory failure, unspecified, unspecified whether with hypoxia or hypercapnia Status: Acute Assessment and Plan: Acute Respiratory failure secondary to influenza A, possible pneumonia, sepsis and encephalopathy -Patient intubated in the ER on 02/03/2022 -Continue full mechanical ventilation support to prevent hypoxemia/hypercarbia and end organ damage. -ABG reviewed increase tidal volume to 350 and rate to 12 -Chest x-ray this morning: . Minimal pleural effusions. Mild central pulmonary edema pattern and probable left basilar atelectasis. -Low tidal volume ventilation strategy to prevent volutrauma -continue Bronchodilators (2) Sepsis: Code(s): A41.9 - Sepsis, unspecified organism Status: Acute Assessment and Plan: Sepsis secondary to influenza A and pneumonia. Pneumonia could be aspiration or post influenza --Status post adequate fluid resuscitation -lactic has normalized -off Levophed -02/03/2022 blood cultures negative x2 -02/04/2022: Sputum cultures growing yeast -urine pneumococcal antigen is pending -urine Legionella antigen is negative Low mycoplasma IgM -S/p 5 days of Tamiflu -vancomycin discontinued on 02/07 - patient currently on Zosyn (started are 02/04) (3) Influenza A: Code(s): J10.1 - Influenza due to other identified influenza virus with other respiratory manifestations Status: Acute Assessment and Plan: See above (4) Pneumonia: Code(s): J18.9 - Pneumonia, unspecified organism Status: Acute Assessment and Plan: See above (5) Hypothermia: Code(s): T68.XXXA - Hypothermia, initial encounter Status: Acute Assessment and Plan: Secondary to sepsis and environmental exposure Patient was treated with warming blanket and fluid warmer Temperature has normalized now (6) Encephalopathy: Code(s): G93.40 - Encephalopathy, unspecified Status: Acute Assessment and Plan: Toxic metabolic encephalopathy 02/03: Initial Head CT was negative TSH normal Ammonia level elevated and patient is on lactulose. Level improved Sedation holiday but patient had not shown any significant improvement in mental status -02/07: Repeat head CT: No intracranial abnormalities -02/08 EEG done, pending report (7) Cirrhosis: Code(s): K74.60 - Unspecified cirrhosis of liver Status: Acute Assessment and Plan: Patient's clinical picture points towards per cirrhosis. He has elevated INR low albumin and elevated ammonia level 02/03/2022 abdominal Ultrasound showed: Heterogeneous hepatic echotexture. Findings could reflect cirrhosis or other chronic liver disease. Correlate with any relevant clinical history. 2 partially hyperechoic hepatic masses measuring 2.4 and 1.4 cm in diameter respectively. These could reflect hemangiomas, but are somewhat indeterminate. Given the background heterogeneity of the liver, triple phase CT or pre and postcontrast MR of the liver recommended to better assess the imaging characteristics of these lesions, and of the liver overall. Gallbladder wall thickening without evidence of gallstone. This is a nonspecific finding. Viral hepatitis panel shows reaction to hepatitis C antibody-RNA PCR [id number] Vitamin K x 2 given Continue Lactulose, ammonia levels have normalized Patient currently intubated and cannot do MRI and also will hold giving contrast due to acute renal failure (8) Elevated liver enzymes: Code(s): R74.8 - Abnormal levels of other serum enzymes Status: Acute Assessment and Plan: secondary to rhabdomyolysis and sepsis Tylenol level was normal Monitor LFTs which are improving Viral hepatitis panel shows reaction to hepatitis C antibody-RNA PCR [id number] Right upper quadrant ultrasound consistent with cirrhosis (9) Hyperbilirubinemia: Code(s): E80.6 - Other disorders of bi
[2022-02-08] MEDS: LABETALOL HCL INJ 100 MG/20 ML VIAL 20 MG IV PUSH ×2 (10:09→15:05)
--- NOTE | 2022-02-08 10:33 | P.NEURO_ITS ---
Neurology EEG Report General Information Date of Study: 02/08/22 TEST EEG DIAGNOSIS change in the mental status CONDITION OF RECORDING sedated EEG NUMBER [id number] CLINICAL HISTORY patient was found at home unresponsive about 5 days ago. He is sedated and on vent in the ICU EEG DESCRIPTION background rhythm consists of low to medium voltage 5 to 7 hertz per 2nd theta activity admixed with low-voltage 3 to 4 hertz per 2nd delta activity. Low- voltage beta activity superimposed on the background rhythm with poor anterior- posterior gradient. Non paroxysmal nonfocal nonlateralizing. Hyperventilation not done photic stimulation not done. IMPRESSION Abnormal record due to the presence of the background slow activity without evidence of any paroxysmal discharge. This EEG is compatible with organic or metabolic encephalopathy with the possibility of postictal state. Clinical correlation recommended
--- NOTE | 2022-02-08 10:46 | PCNFU ---
Nutrition Follow-Up Complete: [place] Oral Intake as related to mechanical vent and evidenced by NPO Goal: Meet estimated nutritional needs -Goal being met via tube feeding Pt current nutrition is Vital 1.2 @ 60 ml/h. Provides 1584 kcals, 99 g protein, 1070 ml free water. Tolerating well. Flushes 30 ml q 4 h. pROPOFOL RUNNING AT 13.44 ML/H FOR TOTAL 354 KCALS. No pressors Nutrition recommendation: Continue current tube feeding orders Last recorded weight is 68.9 kg. Bowel Motility: Liquid stool per fecal containment device Labs Reviewed: Hgb 7.8, Hct 24.5, Alb 3.0, Na 148, gLU 113 Meds Noted: Lactulose, propofol, protonix, zosyn, vanco Skin: No issues Additional Notes: Continue current care plan and monitoring Will reassess every Monday and Monday.
[2022-02-08 11:37] LABS: Glucose Point of Care 134 mg/dl (65-105)
--- NOTE | 2022-02-08 14:15 | WPDGIPROGNO ---
Progress Note: A&P Assessment and Plan (1) Upper GI bleed: Code(s): K92.2 - Gastrointestinal hemorrhage, unspecified Status: Acute Assessment and Plan: no more active bleeding on iv protonix, s/p blood products and iv octreotide on antibiotics (2) Varices of esophagus determined by endoscopy: Code(s): I85.00 - Esophageal varices without bleeding Status: Acute Assessment and Plan: s/p banding (3) Acute blood loss anemia: Code(s): D62 - Acute posthemorrhagic anemia Status: Acute Assessment and Plan: trend h/h no more blood transfusion last 2 days (4) Septic shock: Code(s): A41.9 - Sepsis, unspecified organism; R65.21 - Severe sepsis with septic shock Status: Acute Assessment and Plan: resolved, good BP now on abx (5) Cirrhosis: Code(s): K74.60 - Unspecified cirrhosis of liver Status: Acute Assessment and Plan: new diagnosis, HCV + pending RNA noted liver mass- when more stable this can be study further with either CT or MRI triple phase liver protocol pending AFP level tolerating tube feeding at goal (6) Elevated liver enzymes: Code(s): R74.8 - Abnormal levels of other serum enzymes Status: Acute Assessment and Plan: from rhabdo, LUKASZ and probably also component of shock liver with underlying cirrhosis trending down (7) Acute kidney injury: Code(s): N17.9 - Acute kidney failure, unspecified Status: Acute (8) Rhabdomyolysis: Code(s): M62.82 - Rhabdomyolysis Status: Acute (9) Encephalopathy: Code(s): G93.40 - Encephalopathy, unspecified Status: Acute Assessment and Plan: on lactulose ammonia better this is multifactorial neurology on board (10) Influenza A: Code(s): J10.1 - Influenza due to other identified influenza virus with other respiratory manifestations Status: Acute Assessment and Plan: on isolation (11) Pneumonia: Code(s): J18.9 - Pneumonia, unspecified organism Status: Acute Assessment and Plan: on antibiotics blood culture pending (12) Thrombocytopenia: Code(s): D69.6 - Thrombocytopenia, unspecified Status: Acute (13) Coagulopathy: Code(s): D68.9 - Coagulation defect, unspecified Status: Acute Assessment and Plan: from sepsis and decompensated cirrhosis monitor coags Subjective Date/time seen: 02/08/22 14:15 Interval history: no signs of bleeding, tolerating TF by OGT, still intubated Review of Systems Review of Systems: All systems reviewed & are unremarkable except as noted in HPI and below Exam Narrative: General: Frail cachectic, intubated and on mechanical ventilation Lungs/Chest: Trachea central Coarse BS B/L, No significant crackles or wheezing. Cardiac: RRR. Normal S1 S2. No murmurs Circulation: Feet are warm, palpable pedal pulses Abdomen: Soft, nondistended, nontender, normoactive bowel sounds Extremities: No clubbing, cyanosis or edema. Warm : Curry in place Neurologic: not following commands HEENT: Very poor condition of dentition with several teeth rotten and missing Objective Data Vital Signs Vital Signs: Vital Signs - 24 hr 02/07/22 14:21 02/07/22 16:00 02/07/22 16:00 Temperature 101.2 F H Pulse Rate 77 Respiratory Rate Blood Pressure Pulse Oximetry Oxygen Delivery Fraction of Inspired Oxygen 35 02/07/22 16:00 02/07/22 15:21 02/07/22 16:38 Temperature 100.0 F H 100.1 F H Pulse Rate 76 77 Respiratory Rate 22 H 28 H Blood Pressure 144/78 H Pulse Oximetry 98 Oxygen Delivery Fraction of Inspired Oxygen 02/07/22 16:38 02/07/22 16:00 02/07/22 17:03 Temperature Pulse Rate 78 77 76 Respiratory Rate 28 H 24 H Blood Pressure Pulse Oximetry 98 98 Oxygen Delivery Mechanical Ventilation Mechanical Ventilation Fraction of Inspired Oxygen 35 35 02/07/22 18:00
[2022-02-08] MEDS: ACETAMINOPHEN ELIXIR 325 MG/10.15 ML UDC 650 MG PO (15:05)
[2022-02-08 17:08] LABS: Glucose Point of Care 135 mg/dl (65-105)
[2022-02-08 23:38] LABS: Glucose Point of Care 123 mg/dl (65-105)
[2022-02-09] VITALS (34 sets, daily range): BP systolic 135–170; BP diastolic 67–95; PULSE 66–87; RESP 21–30; TEMP 36.7–37.6; O2SAT 96–100
[2022-02-09] MEDS: PROPOFOL IV EMULSION 100 ML 13.44 MG IV CONT (03:51)
[2022-02-09 05:13] LABS: Alveolar/Arterial O2 Gradient 85.4 mmHg; Base Excess ABG 7.9 mEq/l (+/-2.0); Carboxyhemoglobin 0.2 % THb (0-2.0); Fractional Inspired Oxygen 30 %; HCO3 ABG 32.3 mEq/l (22.0-26.0); Methemoglobin ABG 0.2 %THb (0-1.5); Oxygen Content ABG 16.6 %vol (16.0-22.0); Oxygen Saturation ABG 96.1 % (95.0-100.0); Oxyhemoglobin 94.3 % THb (90.0-100.0); PCO2 ABG 44.1 mmHg (35.0-45.0); PO2 ABG 76.7 mmHg (80.0-100.0); PO2 FiO2 Ratio Arterial Blood 2.56 %; Reduced Hemoglobin 5.3 %THb (0-5.0); Total Hemoglobin 12.5 g/dL (12.0-18.0); pH ABG 7.482 (7.350-7.450)
[2022-02-09 05:22] LABS: Arterial Blood Gas PEEP 5 cmH2O; Arterial Blood Gas Vent Mode CMV; Arterial Blood Gas Ventilator rate 12 /MIN; Device VENTILATOR; Modified Allen's Test Pass; Peak Inspiratory Pressure 350 cmH2O; Site Drawn RIGHT RADIAL
[2022-02-09] MEDS: CENTRAL LINE FLUSH 10 ML IV PUSH ×4 (05:22→20:07)
[2022-02-09 05:23] LABS: Arterial Blood Gas Tidal Volume 350 ml
[2022-02-09 05:55] LABS: Hematocrit 29.3 % (42.0-52.0); Hemoglobin 9.1 g/dL (14.0-18.0); Immature Platelet Fraction Pct 9.3 % (0.9-11.2); Mean Corpuscular HGB Conc 31.1 g/dl (32-36); Mean Corpuscular Hemoglobin 30.7 pg (26-34); Mean Platelet Volume 11.6 fl (7.4-10.4); Platelet Count Result 43 k/mm3 (150-375); Red Blood Count 2.96 M/mm3 (4.6-6.20); Red Cell Distribution Width 17.6 % (11.5-14.5); White Blood Count 7.6 K/mm3 (4.5-10.0)
[2022-02-09 06:02] LABS: Alanine Aminotransferase 207 U/L (6-50); Albumin Level 3.1 g/dL (3.5-5.1); Alkaline Phosphatase 129 U/L (38-126); Anion Gap 3 mmol/L (8-16); Aspartate Amino Transferase 163 U/L (17-59); Bilirubin,Total 2.1 mg/dL (0.2-1.3); Blood Urea Nitrogen 40 mg/dL (9-20); Calcium 7.5 mg/dL (8.4-10.2); Carbon Dioxide 36 mmol/L (22-30); Chloride 114 mmol/L (98-107); Estimated CRCL calculation 51 ml/min; Estimated Glomerular Filt Rate > 60; Glucose 114 mg/dL (65-110); INR 1.6; Magnesium 2.4 mg/dL (1.6-2.3); Phosphorus 3.2 mg/dL (2.5-4.5); Potassium 3.5 mmol/L (3.4-5.0); Prothrombin Time 18.2 Seconds (11.1-14.7); Sodium 153 mmol/L (137-145)
[2022-02-09] MEDS: DEXTROSE 5% 1,000 ML 1,000 ML 50 ML IV CONT (08:22)
[2022-02-09] MEDS: MINERAL OIL/WHITE PETROLATUM OINTMENT 1 APPLIC EACH EYE ×2 (08:23→20:06)
[2022-02-09] MEDS: LACTULOSE 20 GM/30 ML UDC FEED TUBE (08:23)
[2022-02-09] MEDS: PANTOPRAZOLE SODIUM IV 40 MG VIAL IV PUSH ×2 (08:23→20:06)
[2022-02-09] MEDS: PROPOFOL IV EMULSION 100 ML 11.76 MG IV CONT ×2 (11:34→18:14)
[2022-02-09] MEDS: LABETALOL HCL INJ 100 MG/20 ML VIAL 20 MG IV PUSH ×2 (11:36→18:08)
[2022-02-09 11:47] LABS: Glucose Point of Care 136 mg/dl (65-105)
--- NOTE | 2022-02-09 12:57 | WPDINTPN ---
Progress Note: A&P Assessment and Plan (1) Respiratory failure: Code(s): J96.90 - Respiratory failure, unspecified, unspecified whether with hypoxia or hypercapnia Status: Acute Assessment and Plan: Acute Respiratory failure secondary to influenza A, possible pneumonia, sepsis and encephalopathy -Patient intubated in the ER on 02/03/2022 -Continue full mechanical ventilation support to prevent hypoxemia/hypercarbia and end organ damage. -ABG reviewed, -Chest x-ray this morning: Right central airspace disease. Correlate for central pulmonary edema versus possibly pneumonia.. -Low tidal volume ventilation strategy to prevent volutrauma -continue Bronchodilators -sedated with propofol, I have asked the bedside RN to wean propofol to evaluate mental status (2) Sepsis: Code(s): A41.9 - Sepsis, unspecified organism Status: Acute Assessment and Plan: Sepsis secondary to influenza A and pneumonia. Pneumonia could be aspiration or post influenza --Status post adequate fluid resuscitation -lactic has normalized -off Levophed -02/03/2022 blood cultures negative x2 -02/04/2022: Sputum cultures growing yeast -urine pneumococcal antigen is pending -urine Legionella antigen is negative Low mycoplasma IgM -S/p 5 days of Tamiflu -02/09 MRSA screen pending -vancomycin discontinued on 02/07 - patient currently on Zosyn (started are 02/04) (3) Influenza A: Code(s): J10.1 - Influenza due to other identified influenza virus with other respiratory manifestations Status: Acute Assessment and Plan: See above (4) Pneumonia: Code(s): J18.9 - Pneumonia, unspecified organism Status: Acute Assessment and Plan: See above (5) Hypothermia: Code(s): T68.XXXA - Hypothermia, initial encounter Status: Acute Assessment and Plan: Secondary to sepsis and environmental exposure Patient was treated with warming blanket and fluid warmer Temperature has normalized now (6) Encephalopathy: Code(s): G93.40 - Encephalopathy, unspecified Status: Acute Assessment and Plan: Toxic metabolic encephalopathy 02/03: Initial Head CT was negative TSH normal Ammonia level elevated and patient is on lactulose. Level improved Sedation holiday but patient had not shown any significant improvement in mental status -02/07: Repeat head CT: No intracranial abnormalities -02/08 EEG done: Showed organic a metabolic encephalopathy and possibility postictal state (7) Cirrhosis: Code(s): K74.60 - Unspecified cirrhosis of liver Status: Acute Assessment and Plan: Patient's clinical picture points towards per cirrhosis. He has elevated INR low albumin and elevated ammonia level 02/03/2022 abdominal Ultrasound showed: Heterogeneous hepatic echotexture. Findings could reflect cirrhosis or other chronic liver disease. Correlate with any relevant clinical history. 2 partially hyperechoic hepatic masses measuring 2.4 and 1.4 cm in diameter respectively. These could reflect hemangiomas, but are somewhat indeterminate. Given the background heterogeneity of the liver, triple phase CT or pre and postcontrast MR of the liver recommended to better assess the imaging characteristics of these lesions, and of the liver overall. Gallbladder wall thickening without evidence of gallstone. This is a nonspecific finding. Viral hepatitis panel shows reaction to hepatitis C antibody-RNA PCR [id number] Vitamin K x 2 given Will hold lactulose, due to diarrhea. -check ammonia levels every 48 hours they are elevated on trending up will restart lactulose Patient currently intubated and cannot do MRI and also will hold giving contrast due to acute renal failure (8) Elevated liver enzymes: Code(s): R74.8 - Abnormal levels of other serum enzymes Status: Acute Assessment and Plan: secondary to rhabdomyolysis and sepsis Tylenol level was normal Monitor LFTs which are i
[2022-02-09 14:58] LABS: Triglycerides 108 mg/dL (<150)
--- NOTE | 2022-02-09 15:48 | WPDGIPROGNO ---
Progress Note: A&P Assessment and Plan (1) Upper GI bleed: Code(s): K92.2 - Gastrointestinal hemorrhage, unspecified Status: Acute Assessment and Plan: no more active bleeding on iv protonix, s/p blood products and iv octreotide on antibiotics will follow from [place], call if questions (2) Varices of esophagus determined by endoscopy: Code(s): I85.00 - Esophageal varices without bleeding Status: Acute Assessment and Plan: s/p banding and completed iv octreotide consider EGD in 6-8 weeks to reassess (3) Acute blood loss anemia: Code(s): D62 - Acute posthemorrhagic anemia Status: Acute Assessment and Plan: trend h/h no more blood transfusion (4) Septic shock: Code(s): A41.9 - Sepsis, unspecified organism; R65.21 - Severe sepsis with septic shock Status: Acute Assessment and Plan: resolved, good BP now on abx (5) Cirrhosis: Code(s): K74.60 - Unspecified cirrhosis of liver Status: Acute Assessment and Plan: new diagnosis, HCV + with positive RNA- he can follow up as outpatient to decide on medical treatment noted liver mass- when more stable this can be study further with either CT or MRI triple phase liver protocol also ordered AFP level tolerating tube feeding at goal (6) Elevated liver enzymes: Code(s): R74.8 - Abnormal levels of other serum enzymes Status: Acute Assessment and Plan: from rhabdo, LUKASZ and probably also component of shock liver with underlying cirrhosis trending down (7) Encephalopathy: Code(s): G93.40 - Encephalopathy, unspecified Status: Acute Assessment and Plan: on lactulose ammonia better this is multifactorial neurology on board (8) Influenza A: Code(s): J10.1 - Influenza due to other identified influenza virus with other respiratory manifestations Status: Acute Assessment and Plan: on isolation (9) Pneumonia: Code(s): J18.9 - Pneumonia, unspecified organism Status: Acute Assessment and Plan: on antibiotics blood culture pending (10) Thrombocytopenia: Code(s): D69.6 - Thrombocytopenia, unspecified Status: Acute (11) Coagulopathy: Code(s): D68.9 - Coagulation defect, unspecified Status: Acute Assessment and Plan: from sepsis and decompensated cirrhosis monitor coags Subjective Date/time seen: 02/09/22 15:48 Interval history: still intubated, no bleeding, tolerating tube feeding by OGT Review of Systems Review of Systems: All systems reviewed & are unremarkable except as noted in HPI and below Exam Narrative: General: Frail cachectic, intubated and on mechanical ventilation Lungs/Chest: Trachea central Coarse BS B/L, No significant crackles or wheezing. Cardiac: RRR. Normal S1 S2. No murmurs Circulation: Feet are warm, palpable pedal pulses Abdomen: Soft, nondistended, nontender, normoactive bowel sounds Extremities: No clubbing, cyanosis or edema. Warm : Curry in place Neurologic: not following commands HEENT: Very poor condition of dentition with several teeth rotten and missing Objective Data Vital Signs Vital Signs: Vital Signs - 24 hr 02/08/22 16:30 02/08/22 16:00 02/08/22 16:00 Temperature Pulse Rate 77 73 74 Respiratory Rate 26 H 21 H Blood Pressure Pulse Oximetry 97 Oxygen Delivery Mechanical Ventilation Fraction of Inspired Oxygen 30 02/08/22 16:00 02/08/22 16:00 02/08/22 16:05 Temperature 100.3 F H 100.4 F H Pulse Rate 74 Respiratory Rate 74 H Blood Pressure 157/86 H Pulse Oximetry 97 Oxygen Delivery Fraction of Inspired Oxygen 30 02/08/22 16:38 02/08/22 18:00 02/08/22 18:00 Temperature 99.5 F Pulse Rate 77 71 71 Respiratory Rate 20 Blood Pressure 152/72 H Pulse Oximetry 95 96 Oxygen Delivery Mechanical Ventilation Fraction of Inspired Oxygen 30 02/08/22 20:00 02/08/22 20:00 02/08
[2022-02-09] MEDS: ACETAMINOPHEN ELIXIR 325 MG/10.15 ML UDC 650 MG PO (17:03)
[2022-02-09 17:31] LABS: Glucose Point of Care 157 mg/dl (65-105)
[2022-02-10] VITALS (39 sets, daily range): BP systolic 95–160; BP diastolic 55–85; PULSE 64–90; RESP 19–34; TEMP 35.8–38; O2SAT 96–100
[2022-02-10 00:07] LABS: Glucose Point of Care 122 mg/dl (65-105)
[2022-02-10] MEDS: PROPOFOL IV EMULSION 100 ML 13.44 MG IV CONT ×2 (02:41→08:03)
[2022-02-10 04:52] LABS: Alveolar/Arterial O2 Gradient 83.5 mmHg; Carboxyhemoglobin 0.3 % THb (0-2.0); Device VENTILATOR; Fractional Inspired Oxygen 30 %; HCO3 ABG 30.6 mEq/l (22.0-26.0); Methemoglobin ABG 0.2 %THb (0-1.5); Modified Allen's Test Pass; Oxygen Content ABG 13.8 %vol (16.0-22.0); Oxygen Saturation ABG 96.1 % (95.0-100.0); PCO2 ABG 44.3 mmHg (35.0-45.0); PO2 ABG 78.4 mmHg (80.0-100.0); PO2 FiO2 Ratio Arterial Blood 2.61 %; Reduced Hemoglobin 5.5 %THb (0-5.0); Site Drawn LEFT RADIAL; Total Hemoglobin 10.4 g/dL (12.0-18.0); pH ABG 7.457 (7.350-7.450)
[2022-02-10 04:53] LABS: Arterial Blood Gas PEEP 5 cmH2O; Arterial Blood Gas Tidal Volume 350 ml; Arterial Blood Gas Vent Mode CMV; Arterial Blood Gas Ventilator rate 12 /MIN
[2022-02-10] MEDS: CENTRAL LINE FLUSH 10 ML IV PUSH ×4 (05:18→22:04)
[2022-02-10 05:21] LABS: Basophils Percent Auto 0.3 % (0.2-1.2); Eosinophils Absolute Auto 0.4 K/mm3 (0-0.3); Eosinophils Percent Auto 4.7 % (0-4.4); Hematocrit 29.4 % (42.0-52.0); Immature Granulocyte Absolute 0.56 K/mm3 (0.00-0.031); Immature Platelet Fraction Pct 8.7 % (0.9-11.2); Lymphocytes Absolute Auto 1.29 K/mm3 (0.9-3.2); Lymphocytes Percent Auto 13.8 % (18.3-44.2); Mean Corpuscular HGB Conc 30.6 g/dl (32-36); Mean Corpuscular Hemoglobin 30.5 pg (26-34); Mean Corpuscular Volume 99.7 fl (80-100); Mean Platelet Volume 10.4 fl (7.4-10.4); Monocytes Absolute Auto 0.7 K/mm3 (0.1-0.6); Monocytes Percent Auto 7.2 % (2.6-8.5); Neutrophils Absolute Auto 6.4 K/mm3 (1.3-6.7); Nucleated Red Blood Cells Perc 0.2 % (0.0-0.2); Platelet Count Result 43 k/mm3 (150-375); Red Blood Count 2.95 M/mm3 (4.6-6.20); White Blood Count 9.4 K/mm3 (4.5-10.0)
[2022-02-10 05:29] LABS: INR 1.5; Prothrombin Time 17.7 Seconds (11.1-14.7)
[2022-02-10 05:35] LABS: Ammonia 23 umol/L (9-30)
[2022-02-10 05:36] LABS: Alanine Aminotransferase 167 U/L (6-50); Albumin Level 2.9 g/dL (3.5-5.1); Alkaline Phosphatase 122 U/L (38-126); Anion Gap 1 mmol/L (8-16); Aspartate Amino Transferase 112 U/L (17-59); Bilirubin,Total 1.7 mg/dL (0.2-1.3); Blood Urea Nitrogen 36 mg/dL (9-20); Calcium 7.2 mg/dL (8.4-10.2); Carbon Dioxide 36 mmol/L (22-30); Chloride 107 mmol/L (98-107); Estimated CRCL calculation 70 ml/min; Estimated Glomerular Filt Rate > 60; Glucose 109 mg/dL (65-110); Magnesium 2.5 mg/dL (1.6-2.3); Phosphorus 3.1 mg/dL (2.5-4.5); Potassium 3.1 mmol/L (3.4-5.0); Sodium 144 mmol/L (137-145)
[2022-02-10] MEDS: MINERAL OIL/WHITE PETROLATUM OINTMENT 1 APPLIC EACH EYE ×2 (07:57→20:09)
[2022-02-10] MEDS: PANTOPRAZOLE SODIUM IV 40 MG VIAL IV PUSH ×2 (07:57→20:09)
[2022-02-10] MEDS: KCL 40 MEQ/WATER 100 ML 100 ML 25 ML IVPB (08:45)
[2022-02-10] MEDS: dexmedeTOMIDine 400 MCG/100 ML 400 MCG/100 ML BAG IV CONT ×2 (08:48→17:22)
--- NOTE | 2022-02-10 10:54 | PCFNICU ---
ICU Rounding Note: Pt current nutrition is . Nutrition recommendation: Last recorded weight is 69.7 kg. Bowel Motility: Labs Reviewed: Meds Noted: Skin: Additional Notes: Following daily in ICU rounds. Will reassess every Monday and Monday..
--- NOTE | 2022-02-10 10:54 | PCFNICU ---
ICU Rounding Note: Pt current nutrition is Vital 1.2 @ 60 ml/h1584 kcals, 99 g protein, 1070 ml free water. flushes 30 ml q 4 h. Total water 1250 ml/d. Propofol decreased to 6.72 ml/h: 177 kcals. Nutrition recommendation: Continue current. When propofol is discontinued, rate will need to be titrated up. Last recorded weight is 69.7 kg. Bowel Motility: Last BM +1 02/08/22 Labs Reviewed: Hgb 9.0, Hct 29.4, Alb 2.9, K+ 3.1, BUN 36, Trig 108, Mag 2.5 Meds Noted: Precedex. Propofol, protonix, vanco, zosyn Skin: WNL Additional Notes: Continues on vent. Family discussing plan of care. Agree with current tube feeding order and care plan. Following daily in ICU rounds. Will reassess every Monday and Monday..
[2022-02-10 11:37] LABS: Glucose Point of Care 97 mg/dl (65-105)
--- NOTE | 2022-02-10 12:23 | WPDINTPN ---
Progress Note: A&P Assessment and Plan (1) Respiratory failure: Code(s): J96.90 - Respiratory failure, unspecified, unspecified whether with hypoxia or hypercapnia Status: Acute Assessment and Plan: Acute Respiratory failure secondary to influenza A, possible pneumonia, sepsis and encephalopathy -Patient intubated in the ER on 02/03/2022 -Continue full mechanical ventilation support to prevent hypoxemia/hypercarbia and end organ damage. -ABG reviewed, -Chest x-ray this morning: Right central airspace disease. Correlate for central pulmonary edema versus possibly pneumonia.. -Low tidal volume ventilation strategy to prevent volutrauma -continue Bronchodilators -sedated with propofol, I have asked the bedside RN to start Precedex infusion and wean propofol to OFF and evaluate mental status (2) Sepsis: Code(s): A41.9 - Sepsis, unspecified organism Status: Acute Assessment and Plan: Sepsis secondary to influenza A and pneumonia. Pneumonia could be aspiration or post influenza -Status post adequate fluid resuscitation -lactic has normalized -off Levophed -02/03/2022 blood cultures negative x2 -02/04/2022: Sputum cultures growing yeast -urine pneumococcal antigen is pending -urine Legionella antigen is negative Low mycoplasma IgM -S/p 5 days of Tamiflu -02/09 MRSA screen pending -vancomycin discontinued on 02/07 - patient currently on Zosyn (started are 02/04) (3) Influenza A: Code(s): J10.1 - Influenza due to other identified influenza virus with other respiratory manifestations Status: Acute Assessment and Plan: See above (4) Pneumonia: Code(s): J18.9 - Pneumonia, unspecified organism Status: Acute Assessment and Plan: See above (5) Hypothermia: Code(s): T68.XXXA - Hypothermia, initial encounter Status: Acute Assessment and Plan: Secondary to sepsis and environmental exposure Patient was treated with warming blanket and fluid warmer Temperature has normalized now (6) Encephalopathy: Code(s): G93.40 - Encephalopathy, unspecified Status: Acute Assessment and Plan: Toxic metabolic encephalopathy 02/03: Initial Head CT was negative TSH normal Ammonia level elevated and patient is on lactulose. Level improved Sedation holiday but patient had not shown any significant improvement in mental status -02/07: Repeat head CT: No intracranial abnormalities -02/08 EEG done: Showed organic a metabolic encephalopathy and possibility postictal state (7) Cirrhosis: Code(s): K74.60 - Unspecified cirrhosis of liver Status: Acute Assessment and Plan: Patient's clinical picture points towards per cirrhosis. He has elevated INR low albumin and elevated ammonia level 02/03/2022 abdominal Ultrasound showed: Heterogeneous hepatic echotexture. Findings could reflect cirrhosis or other chronic liver disease. Correlate with any relevant clinical history. 2 partially hyperechoic hepatic masses measuring 2.4 and 1.4 cm in diameter respectively. These could reflect hemangiomas, but are somewhat indeterminate. Given the background heterogeneity of the liver, triple phase CT or pre and postcontrast MR of the liver recommended to better assess the imaging characteristics of these lesions, and of the liver overall. Gallbladder wall thickening without evidence of gallstone. This is a nonspecific finding. Viral hepatitis panel shows reaction to hepatitis C antibody-RNA PCR [id number] Vitamin K x 2 given Will hold lactulose, due to diarrhea. -check ammonia levels every 48 hours they are elevated on trending up will restart lactulose. -02/10: Ammonia levels this morning a within normal limits -Patient currently intubated and cannot do MRI and also will hold giving contrast due to acute renal failure (8) Elevated liver enzymes: Code(s): R74.8 - Abnormal levels of other serum enzymes Status: Acute Assessment and P
--- NOTE | 2022-02-10 13:36 | PM.IMPN ---
Subjective Date/time seen: 02/10/22 13:36 Intubated Objective Data Vital Signs Vital Signs: Vital Signs - 24 hr 02/09/22 14:26 02/09/22 14:00 02/09/22 14:00 Temperature 99.5 F Pulse Rate 73 77 78 Respiratory Rate 25 H Blood Pressure 155/83 H Pulse Oximetry 100 99 Oxygen Delivery Mechanical Ventilation Fraction of Inspired Oxygen 30 02/09/22 15:59 02/09/22 16:00 02/09/22 16:00 Temperature 99.5 F Pulse Rate 74 Respiratory Rate 24 H Blood Pressure 166/87 H Pulse Oximetry 99 99 Oxygen Delivery Mechanical Ventilation Fraction of Inspired Oxygen 30 30 02/09/22 16:00 02/09/22 17:03 02/09/22 17:35 Temperature 99.6 F Pulse Rate 78 76 Respiratory Rate Blood Pressure Pulse Oximetry 99 Oxygen Delivery Mechanical Ventilation Fraction of Inspired Oxygen 30 02/09/22 18:03 02/09/22 18:08 02/09/22 18:14 Temperature 99.3 F Pulse Rate 76 70 Respiratory Rate 30 H Blood Pressure Pulse Oximetry Oxygen Delivery Fraction of Inspired Oxygen 02/09/22 18:00 02/09/22 18:00 02/09/22 20:00 Temperature 99.3 F 98.6 F Pulse Rate 74 74 66 Respiratory Rate 30 H 22 H Blood Pressure 167/88 H 135/67 Pulse Oximetry 99 100 Oxygen Delivery Fraction of Inspired Oxygen 02/09/22 20:00 02/09/22 22:59 02/09/22 20:00 Temperature Pulse Rate 75 66 Respiratory Rate 27 H Blood Pressure Pulse Oximetry Oxygen Delivery Fraction of Inspired Oxygen 30 02/09/22 22:00 02/09/22 20:00 02/09/22 22:00 Temperature 98.6 F Pulse Rate 73 73 Respiratory Rate 24 H Blood Pressure 151/76 H Pulse Oximetry 99 Oxygen Delivery Mechanical Ventilation Fraction of Inspired Oxygen 30 02/09/22 20:25 02/10/22 00:00 02/10/22 00:00 Temperature 97.9 F Pulse Rate 71 69 72 Respiratory Rate 25 H Blood Pressure 142/75 H Pulse Oximetry 100 100 Oxygen Delivery Mechanical Ventilation Fraction of Inspired Oxygen 30 02/10/22 00:00 02/10/22 00:00 02/09/22 23:25 Temperature Pulse Rate 73 Respiratory Rate Blood Pressure Pulse Oximetry 100 Oxygen Delivery Mechanical Ventilation Mechanical Ventilation Fraction of Inspired Oxygen 30 30 30 02/10/22 02:41 02/10/22 02:00 02/10/22 04:00 Temperature Pulse Rate 64 67 73 Respiratory Rate 19 Blood Pressure Pulse Oximetry Oxygen Delivery Fraction of Inspired Oxygen 02/10/22 02:00 02/10/22 04:00 02/10/22 04:00 Temperature 97.6 F 97.3 F L Pulse Rate 67 73 Respiratory Rate 21 H 28 H Blood Pressure 104/61 159/82 H Pulse Oximetry 96 99 Oxygen Delivery Mechanical Ventilation Fraction of Inspired Oxygen 30 02/10/22 04:00 02/10/22 05:19 02/10/22 02:55 Temperature Pulse Rate 71 71 Respiratory Rate 20 Blood Pressure Pulse Oximetry 100 Oxygen Delivery Mechanical Ventilation Fraction of Inspired Oxygen 30 30 02/10/22 05:25 02/10/22 06:00 02/10/22 06:00 Temperature 97.5 F L Pulse Rate 75 72 72 Respiratory Rate 23 H Blood Pressure 144/75 H Pulse Oximetry 99 98 Oxygen Delivery Mechanical Ventilation Fraction of Inspired Oxygen 30 02/10/22 08:03 02/10/22 08:03 02/10/22 08:00 Temperature 96.5 F L Pulse Rate 64 68 66 Respiratory Rate 19 19 19 Blood Pressure 132/75 Pulse Oximetry 100 Oxygen Delivery Fraction of Inspired Oxygen 02/10/22 08:00 02/10/22 08:23 02/10/22 08:44 Temperature 96.6 F L Pulse Rate 67 74 Respiratory Rate 21 H Blood Pressure 130/75 Pulse Oximetry 99 100 Oxygen Delivery Mechanical Ventilation Fraction of Inspired Oxygen 30 30 02/10/22 08:48 02/10/22 09:18 02/10/22 09:39 Temperature Pulse Rate 72 79 80 Respiratory Rate 23 H 26 H 27 H Blood Pressure Pulse Oximetry Oxygen Delivery Fraction of Inspired Oxygen 02/10/22 09:40 02/10/22 08:00 02/10/22 08:00 Temperature Pulse Rate 79 65 Respiratory Rate 27 H Blood Pressure
[2022-02-10] MEDS: MIDAZOLAM HCL (*CRX) 2 MG/2 ML VIAL IV PUSH (13:57)
[2022-02-10] MEDS: ACETAMINOPHEN ELIXIR 325 MG/10.15 ML UDC 650 MG PO (15:08)
[2022-02-10 15:21] LABS: Anion Gap 2 mmol/L (8-16); Blood Urea Nitrogen 40 mg/dL (9-20); Calcium 7.1 mg/dL (8.4-10.2); Carbon Dioxide 36 mmol/L (22-30); Chloride 112 mmol/L (98-107); Estimated CRCL calculation 70 ml/min; Estimated Glomerular Filt Rate > 60; Glucose 102 mg/dL (65-110); Potassium 3.8 mmol/L (3.4-5.0); Sodium 150 mmol/L (137-145)
[2022-02-10 17:46] LABS: Glucose Point of Care 149 mg/dl (65-105)
[2022-02-10] MEDS: PROPOFOL IV EMULSION 100 ML 10.08 MG IV CONT (18:13)
[2022-02-10 18:56] LABS: Glucose Point of Care 117 mg/dl (65-105)
[2022-02-11] VITALS (32 sets, daily range): BP systolic 99–152; BP diastolic 59–91; PULSE 59–83; RESP 16–36; TEMP 36.8–38; O2SAT 94–100
[2022-02-11] MEDS: MIDAZOLAM HCL (*CRX) 2 MG/2 ML VIAL IV PUSH ×2 (00:03→20:57)
[2022-02-11 00:14] LABS: Glucose Point of Care 100 mg/dl (65-105)
[2022-02-11] MEDS: PROPOFOL IV EMULSION 100 ML 13.44 MG IV CONT ×2 (02:27→08:57)
[2022-02-11 05:09] LABS: Base Excess ABG 8.1 mEq/l (+/-2.0); HCO3 ABG 35.3 mEq/l (22.0-26.0); Oxygen Saturation ABG 97.3 % (95.0-100.0); PCO2 ABG 59.6 mmHg (35.0-45.0)
[2022-02-11 05:10] LABS: Alveolar/Arterial O2 Gradient 44.9 mmHg; Device VENTILATOR; Fractional Inspired Oxygen 30 %; Modified Allen's Test Unable to perform; Site Drawn RIGHT RADIAL
[2022-02-11 05:11] LABS: Arterial Blood Gas PEEP 5 cmH2O; Arterial Blood Gas Tidal Volume 350 ml; Arterial Blood Gas Vent Mode CMV; Arterial Blood Gas Ventilator rate 20 /MIN
[2022-02-11] MEDS: dexmedeTOMIDine 400 MCG/100 ML 400 MCG/100 ML BAG 6.97 MCG IV CONT (05:53)
[2022-02-11 06:00] LABS: Glucose Point of Care 102 mg/dl (65-105)
[2022-02-11] MEDS: CENTRAL LINE FLUSH 10 ML IV PUSH ×4 (06:33→19:36)
[2022-02-11 07:03] LABS: Basophils Percent Auto 0.3 % (0.2-1.2); Eosinophils Absolute Auto 0.3 K/mm3 (0-0.3); Eosinophils Percent Auto 3.7 % (0-4.4); Hematocrit 26.8 % (42.0-52.0); Hemoglobin 8.3 g/dL (14.0-18.0); Immature Granulocyte Absolute 0.31 K/mm3 (0.00-0.031); Immature Granulocyte Percent A 3.4 % (0-0.5); Lymphocytes Absolute Auto 1.14 K/mm3 (0.9-3.2); Lymphocytes Percent Auto 12.4 % (18.3-44.2); Mean Corpuscular Hemoglobin 31.3 pg (26-34); Mean Corpuscular Volume 101.1 fl (80-100); Monocytes Absolute Auto 0.5 K/mm3 (0.1-0.6); Monocytes Percent Auto 5.7 % (2.6-8.5); Neutrophils Absolute Auto 6.8 K/mm3 (1.3-6.7); Neutrophils Percent Auto 74.5 % (45.5-73.1); Platelet Count Result 47 k/mm3 (150-375); Red Blood Count 2.65 M/mm3 (4.6-6.20); Red Cell Distribution Width 18.5 % (11.5-14.5); White Blood Count 9.2 K/mm3 (4.5-10.0)
[2022-02-11 07:21] LABS: Alanine Aminotransferase 139 U/L (6-50); Albumin Level 2.7 g/dL (3.5-5.1); Alkaline Phosphatase 114 U/L (38-126); Anion Gap 2 mmol/L (8-16); Aspartate Amino Transferase 106 U/L (17-59); Bilirubin,Total 1.5 mg/dL (0.2-1.3); Blood Urea Nitrogen 51 mg/dL (9-20); Calcium 7.3 mg/dL (8.4-10.2); Carbon Dioxide 34 mmol/L (22-30); Chloride 112 mmol/L (98-107); Estimated CRCL calculation 73 ml/min; Estimated Glomerular Filt Rate > 60; Glucose 126 mg/dL (65-110); Magnesium 2.7 mg/dL (1.6-2.3); Phosphorus 3.2 mg/dL (2.5-4.5); Potassium 3.6 mmol/L (3.4-5.0); Sodium 148 mmol/L (137-145)
[2022-02-11] MEDS: POTASSIUM CHLORIDE 20 MEQ PACKET (FOR LIQUID) 40 MEQ FEED TUBE (07:54)
[2022-02-11] MEDS: DEXTROSE 5% 1,000 ML 1,000 ML 50 ML IV CONT (07:54)
[2022-02-11] MEDS: MINERAL OIL/WHITE PETROLATUM OINTMENT 1 APPLIC EACH EYE ×2 (07:55→19:36)
[2022-02-11] MEDS: PANTOPRAZOLE SODIUM IV 40 MG VIAL IV PUSH ×2 (07:55→19:36)
[2022-02-11 08:06] LABS: Hypochromasia 1+ (NORMAL); Platelet Estimate Decreased (Adequate)
[2022-02-11 08:07] LABS: Schistocytes None Seen (NORMAL)
[2022-02-11] MEDS: dexmedeTOMIDine 400 MCG/100 ML 400 MCG/100 ML BAG 13.94 MCG IV CONT (11:18)
[2022-02-11 11:24] LABS: Glucose Point of Care 136 mg/dl (65-105)
--- NOTE | 2022-02-11 11:32 | WPDINTPN ---
Progress Note: A&P Assessment and Plan (1) Respiratory failure: Code(s): J96.90 - Respiratory failure, unspecified, unspecified whether with hypoxia or hypercapnia Status: Acute Assessment and Plan: Acute Respiratory failure secondary to influenza A, possible pneumonia, sepsis and encephalopathy -Patient intubated in the ER on 02/03/2022 -Continue full mechanical ventilation support to prevent hypoxemia/hypercarbia and end organ damage. -ABG reviewed, -Chest x-ray this morning: Stable central mild pulmonary edema pattern versus pneumonia. -Low tidal volume ventilation strategy to prevent volutrauma -continue Bronchodilators -sedated with Precedex and propofol, propofol is being weaned, so as to evaluate his mental status. (2) Sepsis: Code(s): A41.9 - Sepsis, unspecified organism Status: Acute Assessment and Plan: Sepsis secondary to influenza A and pneumonia. Pneumonia could be aspiration or post influenza -Status post adequate fluid resuscitation -lactic has normalized -off Levophed -02/03/2022 blood cultures negative x2 -02/04/2022: Sputum cultures growing yeast -urine pneumococcal antigen is pending -urine Legionella antigen is negative Low mycoplasma IgM -patient was positive for influenza A, S/p 5 days of Tamiflu -02/09 MRSA screen pending -vancomycin discontinued on 02/07 - patient currently on Zosyn (started are 02/04) (3) Influenza A: Code(s): J10.1 - Influenza due to other identified influenza virus with other respiratory manifestations Status: Acute Assessment and Plan: See above (4) Pneumonia: Code(s): J18.9 - Pneumonia, unspecified organism Status: Acute Assessment and Plan: See above (5) Hypothermia: Code(s): T68.XXXA - Hypothermia, initial encounter Status: Acute Assessment and Plan: Secondary to sepsis and environmental exposure Patient was treated with warming blanket and fluid warmer Temperature has normalized now (6) Encephalopathy: Code(s): G93.40 - Encephalopathy, unspecified Status: Acute Assessment and Plan: Toxic metabolic encephalopathy, possible anoxic injury as patient was found down at his house as he was hypothermic with body temperature of 90? 02/03: Initial Head CT was negative TSH normal Ammonia level elevated and patient is on lactulose. Level improved Sedation holiday but patient had not shown any significant improvement in mental status -12/26: Repeat head CT: No intracranial abnormalities -02/08 EEG done: Showed organic a metabolic encephalopathy and possibility postictal state -02/11: Repeat head CT with no intracranial abnormalities (7) Cirrhosis: Code(s): K74.60 - Unspecified cirrhosis of liver Status: Acute Assessment and Plan: Patient's clinical picture points towards per cirrhosis. He has elevated INR low albumin and elevated ammonia level 02/03/2022 abdominal Ultrasound showed: Heterogeneous hepatic echotexture. Findings could reflect cirrhosis or other chronic liver disease. Correlate with any relevant clinical history. 2 partially hyperechoic hepatic masses measuring 2.4 and 1.4 cm in diameter respectively. These could reflect hemangiomas, but are somewhat indeterminate. Given the background heterogeneity of the liver, triple phase CT or pre and postcontrast MR of the liver recommended to better assess the imaging characteristics of these lesions, and of the liver overall. Gallbladder wall thickening without evidence of gallstone. This is a nonspecific finding. Viral hepatitis panel shows reaction to hepatitis C antibody-RNA PCR 668203 Vitamin K x 2 given Will hold lactulose, due to diarrhea. -check ammonia levels every 48 hours they are elevated on trending up will restart lactulose. -02/10: Ammonia levels this morning a within normal limits -Patient currently intubated and cannot do MRI and also will hold giving contrast due to acute renal f
--- NOTE | 2022-02-11 11:32 | PCNFU ---
Nutrition Follow-Up Complete: Inadeuate Oral Intake as related to mechanical vent and evidenced by NPO Goal:Meet estimated nutritional needs - Goal being met with current tube feeding orders Pt current nutrition is Vital 1.2 @ 60 ml/h with 30 ml flushes q 4 hours. Propofol @ 6.72 ml/h= 177 kcals.. 1584 kcals, 99 g protein, 1070 ml free water, Total free water 1250 ml/day Nutrition recommendation: Continue current tube feeding and flushes with no changes. Agree with current orders. Last recorded weight is 72.8 kg. Bowel Motility: Loose stools per FMS Labs Reviewed: Hgb 8.3, Hct 26.8, Alb 2.7, Na 148, BUN 51, Glu 136, Mag 2.7 Meds Noted: Precedex, propofol, versed. Skin: Excoriation to lip from tube Additional Notes: Continuing conversation with family about goals of care. Tolerating tube feeding well. Continue current orders. Will reassess every Monday and Monday.
[2022-02-11 11:52] LABS: Glucose Point of Care 134 mg/dl (65-105)
[2022-02-11] MEDS: fentaNYL CITRATE INJ (*CRX) 100 MCG/2 ML VIAL 25 MCG IV PUSH ×3 (13:17→22:08)
[2022-02-11] MEDS: dexmedeTOMIDine 400 MCG/100 ML 400 MCG/100 ML BAG 26.14 MCG IV CONT ×3 (14:43→23:12)
[2022-02-11 16:12] LABS: Triglycerides 92 mg/dL (<150)
[2022-02-11 16:21] LABS: Alpha Fetoprotein Tumor Marker 14.1 ng/mL (<6.1)
[2022-02-11 19:07] LABS: Glucose Point of Care 143 mg/dl (65-105)
[2022-02-11] MEDS: PROPOFOL IV EMULSION 100 ML 6.72 MG IV CONT (19:37)
[2022-02-12] VITALS (11 sets, daily range): BP systolic 111–155; BP diastolic 60–83; PULSE 63–87; RESP 18–36; TEMP 37.6–38.1; O2SAT 93–97
[2022-02-12 00:47] LABS: Glucose Point of Care 104 mg/dl (65-105)
[2022-02-12 02:50] LABS: Pneumococcal Antigen Urine Detected (Not Detected)
[2022-02-12] MEDS: dexmedeTOMIDine 400 MCG/100 ML 400 MCG/100 ML BAG 26.14 MCG IV CONT ×2 (02:53→06:37)
[2022-02-12 04:54] LABS: Alveolar/Arterial O2 Gradient 108.5 mmHg; Base Excess ABG 5.7 mEq/l (+/-2.0); Carboxyhemoglobin 1.2 % THb (0-2.0); Fractional Inspired Oxygen 30 %; HCO3 ABG 29.1 mEq/l (22.0-26.0); Methemoglobin ABG 0.3 %THb (0-1.5); Oxygen Content ABG 17.6 %vol (16.0-22.0); Oxygen Saturation ABG 93.2 % (95.0-100.0); Oxyhemoglobin 90.6 % THb (90.0-100.0); PCO2 ABG 38.2 mmHg (35.0-45.0); PO2 ABG 60.5 mmHg (80.0-100.0); PO2 FiO2 Ratio Arterial Blood 2.02 %; Reduced Hemoglobin 7.9 %THb (0-5.0); Total Hemoglobin 13.8 g/dL (12.0-18.0)
[2022-02-12 04:55] LABS: Device VENTILATOR; Modified Allen's Test Unable to perform; Site Drawn RIGHT RADIAL
[2022-02-12 04:56] LABS: Arterial Blood Gas PEEP 5 cmH2O; Arterial Blood Gas Tidal Volume 350 ml; Arterial Blood Gas Vent Mode CMV; Arterial Blood Gas Ventilator rate 20 /MIN
[2022-02-12] MEDS: PROPOFOL IV EMULSION 100 ML 8.4 MG IV CONT (05:01)
[2022-02-12] MEDS: CENTRAL LINE FLUSH 10 ML IV PUSH (05:02)
[2022-02-12 06:18] LABS: Basophils Percent Auto 0.4 % (0.2-1.2); Eosinophils Absolute Auto 0.3 K/mm3 (0-0.3); Eosinophils Percent Auto 3.3 % (0-4.4); Hematocrit 27.3 % (42.0-52.0); Hemoglobin 8.4 g/dL (14.0-18.0); Immature Granulocyte Absolute 0.39 K/mm3 (0.00-0.031); Immature Granulocyte Percent A 4.2 % (0-0.5); Lymphocytes Absolute Auto 1.26 K/mm3 (0.9-3.2); Lymphocytes Percent Auto 13.7 % (18.3-44.2); Mean Corpuscular HGB Conc 30.8 g/dl (32-36); Mean Corpuscular Hemoglobin 30.2 pg (26-34); Mean Corpuscular Volume 98.2 fl (80-100); Mean Platelet Volume 12.1 fl (7.4-10.4); Monocytes Absolute Auto 0.6 K/mm3 (0.1-0.6); Neutrophils Absolute Auto 6.7 K/mm3 (1.3-6.7); Neutrophils Percent Auto 72.4 % (45.5-73.1); Platelet Count Result 49 k/mm3 (150-375); Red Blood Count 2.78 M/mm3 (4.6-6.20); Red Cell Distribution Width 18.6 % (11.5-14.5); White Blood Count 9.2 K/mm3 (4.5-10.0)
[2022-02-12 06:43] LABS: Ammonia < 9 umol/L (9-30)
[2022-02-12 06:44] LABS: Magnesium 2.5 mg/dL (1.6-2.3)
[2022-02-12 06:45] LABS: Phosphorus 2.8 mg/dL (2.5-4.5)
[2022-02-12 07:29] LABS: Hypochromasia 1+ (NORMAL); Platelet Estimate Decreased (Adequate)
[2022-02-12 07:30] LABS: Schistocytes None Seen (NORMAL)
[2022-02-12] MEDS: LORazepam INJ (*CRX) 2 MG/ML VIAL IV PUSH ×5 (10:35→15:50)
[2022-02-12] MEDS: MORPHINE SULFATE INJ (*CRX) 10 MG/ML AMP 5 MG IV PUSH (10:35)
--- NOTE | 2022-02-12 10:58 | WPDINTPN ---
Progress Note: A&P Assessment and Plan (1) Respiratory failure: Code(s): J96.90 - Respiratory failure, unspecified, unspecified whether with hypoxia or hypercapnia Status: Acute Assessment and Plan: Acute Respiratory failure secondary to influenza A, possible pneumonia, sepsis and encephalopathy -Patient intubated in the ER on 02/03/2022 -Continue full mechanical ventilation support to prevent hypoxemia/hypercarbia and end organ damage. -ABG reviewed, -Chest x-ray this morning: Airspace opacities in right mid and lower lung zones and left lower lung zones with worsening on the right, consistent with atelectasis versus pneumonia -Low tidal volume ventilation strategy to prevent volutrauma -continue Bronchodilators -sedated with Precedex and propofol, propofol is being weaned, so as to evaluate his mental status. -FAMILY AT BEDSIDE, WANTS TO WITHDRAW SUPPORT AND MAKE HIM COMFORT MEASURES (2) Sepsis: Code(s): A41.9 - Sepsis, unspecified organism Status: Acute Assessment and Plan: Sepsis secondary to influenza A and pneumonia. Pneumonia could be aspiration or post influenza -Status post adequate fluid resuscitation -lactic has normalized -off Levophed -02/03/2022 blood cultures negative x2 -02/04/2022: Sputum cultures growing yeast -urine pneumococcal antigen is pending -urine Legionella antigen is negative Low mycoplasma IgM -patient was positive for influenza A, S/p 5 days of Tamiflu -02/09 MRSA screen pending -vancomycin discontinued on 02/07 - patient currently on Zosyn (started are 02/04) (3) Influenza A: Code(s): J10.1 - Influenza due to other identified influenza virus with other respiratory manifestations Status: Acute Assessment and Plan: See above (4) Pneumonia: Code(s): J18.9 - Pneumonia, unspecified organism Status: Acute Assessment and Plan: See above (5) Hypothermia: Code(s): T68.XXXA - Hypothermia, initial encounter Status: Acute Assessment and Plan: Secondary to sepsis and environmental exposure Patient was treated with warming blanket and fluid warmer Temperature has normalized now (6) Encephalopathy: Code(s): G93.40 - Encephalopathy, unspecified Status: Acute Assessment and Plan: Toxic metabolic encephalopathy, possible anoxic injury as patient was found down at his house as he was hypothermic with body temperature of 90? 02/03: Initial Head CT was negative TSH normal Ammonia level elevated and patient is on lactulose. Level improved Sedation holiday but patient had not shown any significant improvement in mental status -02/07: Repeat head CT: No intracranial abnormalities -02/08 EEG done: Showed organic a metabolic encephalopathy and possibility postictal state -02/11: Repeat head CT with no intracranial abnormalities (7) Cirrhosis: Code(s): K74.60 - Unspecified cirrhosis of liver Status: Acute Assessment and Plan: Patient's clinical picture points towards per cirrhosis. He has elevated INR low albumin and elevated ammonia level 02/03/2022 abdominal Ultrasound showed: Heterogeneous hepatic echotexture. Findings could reflect cirrhosis or other chronic liver disease. Correlate with any relevant clinical history. 2 partially hyperechoic hepatic masses measuring 2.4 and 1.4 cm in diameter respectively. These could reflect hemangiomas, but are somewhat indeterminate. Given the background heterogeneity of the liver, triple phase CT or pre and postcontrast MR of the liver recommended to better assess the imaging characteristics of these lesions, and of the liver overall. Gallbladder wall thickening without evidence of gallstone. This is a nonspecific finding. Viral hepatitis panel shows reaction to hepatitis C antibody-RNA PCR 347840 Vitamin K x 2 given Will hold lactulose, due to diarrhea. -check ammonia levels every 48 hours they are elevated on trending up will restart lactu
[2022-02-12] MEDS: MORPHINE SULFATE (*CRX) 2 MG/ML INJ IV PUSH ×5 (11:12→14:25)
[2022-02-12 12:13] LABS: Glucose Point of Care 78 mg/dl (65-105)
[2022-02-12] MEDS: MORPHINE SULFATE (*CRX) 4 MG/ML INJ 5 MG IV PUSH (13:40)
[2022-02-12] MEDS: MORPHINE SULFATE (*CRX) 2 MG/ML INJ 5 MG IV PUSH ×3 (15:07→16:20)
--- NOTE | 2022-03-11 10:51 | P.DN_ITS ---
Discharge Summary Date and Time Date of : 02/12/22 Time of : 16:24 Provider Pronounced By: Alanna BahenaRN & Praitbha Velasquez RN Probable Cause of Probable Cause of : Respiratory and Cardiac Arrest Summary Hospital Course: Patient was initially admitted acute respiratory failure, severe sepsis, influenza a, encephalopathy, hepatitis-C, cirrhosis of liver. Patient is being treated for influenza pneumonia and completed a course of Tamiflu patient also had a encephalopathy due course of his hospital stay, his ammonia level were elevated and was started lactulose. Patient also had cirrhosis with 2 partially hypoechoic hepatic masses measuring 2.4 and 1.4 cm in diameter. Patient also had hepatitis-C with RNA PCR level of 419,000. Patient also had vomited blood at home, EGD was done on 02/04 which showed gastritis and esophageal varices which were banded. Patient received multiple blood products including packed RBCs, FFP, platelets. He was also on antibiotic ox for SBP prophylaxis. Patient also was thrombocytopenic and anemic. Discussed at length with family and a stated history of diabetes wishes further withdrew support on him on 02/12/2022. Passed peacefully on 02/12/2022 at 4:24 p.m. 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
== END 2022-02-12 16:24 | disposition expired | DRG 870 ==
LOC: ANHED 13:57 → ANHICU 14:28
PROVIDERS: Internal Medicine; Internal Medicine Gastroenterology; Nurse Practitioner; Admitting Provider Student in an Organized Health Care Education/Training Program; Emergency Provider Emergency Medicine; Visit Provider Internal Medicine
PROC: 0DJ08ZZ Inspection of Upper Intestinal Tract, Via Natural or Artificial Opening Endoscopic (ICD-10-PCS; CPT 43235; principal; 2022-02-04 14:45)
DX: A41.9 Sepsis, unspecified organism (principal); G92.8 Other toxic encephalopathy; J10.00 Influenza due to other identified influenza virus with unspecified type of pneumonia; J96.00 Acute respiratory failure, unspecified whether with hypoxia or hypercapnia; D68.9 Coagulation defect, unspecified; I85.00 Esophageal varices without bleeding; M62.82 Rhabdomyolysis; R65.20 Severe sepsis without septic shock; T68.XXXA Hypothermia, initial encounter; K74.60 Unspecified cirrhosis of liver; R74.8 Abnormal levels of other serum enzymes; E80.6 Other disorders of bilirubin metabolism; R77.8 Other specified abnormalities of plasma proteins; E87.5 Hyperkalemia; Z20.822 Contact with and (suspected) exposure to COVID-19; B19.20 Unspecified viral hepatitis C without hepatic coma; Z80.42 Family history of malignant neoplasm of prostate; Z82.5 Family history of asthma and other chronic lower respiratory diseases; Z81.8 Family history of other mental and behavioral disorders; Z87.891 Personal history of nicotine dependence; Z88.5 Allergy status to narcotic agent
CPT/HCPCS: 36415; 36430; 36600; 70450; 71045; 76705; 80048; 80053; 80074; 80202; 80307; 81001; 82105; 82140; 82271; 82274; 82375; 82550; 82805; 82948; 83050; 83605; 83735; 83986; 84100; 84443; 84478; 84484; 85014; 85018; 85025; 85027; 85055; 85610; 85730; 86738; 86850; 86900; 86901; 86923; 87040; 87070; 87081; 87205; 87449; 87522; 87636; 87899; 93005; 94003; 95816; 96361; 96374; 99285; A9270; C1751; C8929; C9113; J0330; J0456; J0610; J0696; J1650; J1815; J1940; J2060; J2250; J2270; J2354; J2543; J2704; J3010; J3370; J3480; J7030; J7050; J7070; J7120; J7121; P9016; P9017; P9034; P9047